=== PATIENT | female | born 1975 | race Caucasian/White ===

== ENCOUNTER 2022-07-31 15:54 | Outpatient (OUT) | payer MEDICARE, MEDICAID, SELFPAY ==
[2022-07-31 16:20] LABS: Basophils Absolute Auto 0.1 10^3/uL (0.0-0.1); Eosinophils Absolute Auto 0.1 10^3/uL (0.0-0.7); Hematocrit 42.2 % (36.0-48.0); Hemoglobin 14.4 g/dL (12.0-16.0); Immature Granulocytes Abs Auto 0.01 10^3/uL (0.00-0.03); Immature Granulocytes Pct Auto 0.2 % (0.0-0.5); Lymphocytes Absolute Auto 1.2 10^3/uL (1.2-3.8); Lymphocytes Percent Auto 19.6 % (20.5-60.0); Mean Corpuscular HGB Conc 34.1 g/dL (29.9-35.2); Mean Corpuscular Hemoglobin 32.8 pg (26.7-34.0); Mean Corpuscular Volume 96.1 fL (81.0-99.0); Mean Platelet Volume 9.3 fL (9.5-13.5); Monocytes Absolute Auto 0.5 10^3/uL (0.3-0.8); Monocytes Percent Auto 7.4 % (1.7-12.0); Neutrophils Absolute Auto 4.3 10^3/uL (1.4-6.5); Neutrophils Percent Auto 70.8 % (43.0-75.0); Platelet Count 268 10^3/uL (150-450); Red Blood Count 4.39 10^6/uL (4.20-5.40); Red Cell Distribution Width 14.6 % (11.0-15.0); White Blood Count 6.1 10^3/uL (4.0-11.0)
[2022-07-31 16:47] LABS: Alanine Aminotransferase 15 U/L (14-59); Albumin Level 3.5 g/dL (3.4-5.0); Alkaline Phosphatase 70 U/L (46-116); Anion Gap 11.9; Aspartate Amino Transferase 15 U/L (15-37); BUN Creatinine Ratio 6.2; Bilirubin Total 0.5 mg/dL (0.2-1.0); C Reactive Protein 0.5 mg/dL (<=1.0); Calcium 8.8 mg/dL (8.5-10.1); Carbon Dioxide 23.9 mmol/L (21.0-32.0); Chloride 101 mmol/L (98-107); Estimated GFR (African America >60 (>=60); Estimated GFR (Non-African Ame >60 (>=60); Globulin 3.5 g/dL; Glucose 97 mg/dL (74-106); Potassium 3.8 mmol/L (3.5-5.1); Sodium 133 mmol/L (136-145)
[2022-08-07 11:09] LABS: Calprotectin, Fecal 5 ug/g (0-120)
== END 2022-07-31 15:55 | disposition home or self-care (01) ==
LOC: LAB 15:54
DX: K52.89 Other specified noninfective gastroenteritis and colitis (principal)
CPT/HCPCS: 36415; 80053; 83993; 85025; 86140

== ENCOUNTER 2022-12-18 11:11 | Outpatient (OUT) | payer MEDICARE, MEDICAID, SELFPAY ==
[2022-12-18 12:05] LABS: Free T4 1.47 ng/dL (0.76-1.46)
[2022-12-18 12:10] LABS: Alanine Aminotransferase 15 U/L (14-59); Albumin Globulin Ratio 0.9; Albumin Level 3.5 g/dL (3.4-5.0); Alkaline Phosphatase 72 U/L (46-116); Aspartate Amino Transferase 13 U/L (15-37); BUN Creatinine Ratio 9.6; Bilirubin Total 0.7 mg/dL (0.2-1.0); Calcium 9.2 mg/dL (8.5-10.1); Carbon Dioxide 27.9 mmol/L (21.0-32.0); Chloride 98 mmol/L (98-107); Chol HDL Ratio 2.9; Cholesterol 168 mg/dL (<=200); Estimated GFR (African America >60 (>=60); Estimated GFR (Non-African Ame >60 (>=60); Globulin 3.7 g/dL; Glucose 94 mg/dL (74-106); HDL Cholesterol 58 mg/dL (40-60); LDL Cholesterol Calculated 89.2 mg/dL; Potassium 3.9 mmol/L (3.5-5.1); Sodium 131 mmol/L (136-145); Thyroid Stimulating Hormone 0.031 uIU/mL (0.358-3.740); Total Protein 7.2 g/dL (6.4-8.2); Triglycerides 104 mg/dL (<=150); VLDL CHOLESTEROL 20.8 mg/dL
== END 2022-12-18 11:12 | disposition home or self-care (01) ==
LOC: LAB 11:13
DX: E03.9 Hypothyroidism, unspecified (principal); I10 Essential (primary) hypertension
CPT/HCPCS: 36415; 80053; 80061; 84439; 84443

== ENCOUNTER 2023-09-27 14:17 | Outpatient (OUT) | payer MEDICARE, MEDICAID, SELFPAY ==
--- NOTE | 2023-09-27 14:19 | US_ITS ---
The [address] [address] Patient Name: GOLDEN SANTIZO MRN: [id number] date: 1975 Sex: F Assigned Patient Location: [facility] Current Patient Location: Accession/Order Number: [id number] Exam Date: 09/27/2023 14:22 Report Date: 09/29/2023 00:41 At the request of: SATURNINO CAMARA Procedure: US pelvis w/ transvaginal EXAM: US Pelvis Transvaginal CLINICAL INDICATION: Fibroid D21.9 TECHNIQUE: Real-time transvaginal pelvic ultrasound with image documentation. Transvaginal imaging was used for better evaluation of the endometrium and adnexa. COMPARISON: No relevant prior studies available. FINDINGS: UTERUS/CERVIX: 1.5 x 1.9 cm posterior myometrial fibroid. Normal endometrial stripe thickness. RIGHT OVARY: Unremarkable. No mass. Normal blood flow. LEFT OVARY: Unremarkable. No mass. Normal blood flow. FREE FLUID: No free fluid. US/US pelvis w/ transvaginal IMPRESSION: Solitary uterine fibroid Electronically authenticated by: ARGENTINA AVILA Date: 09/29/2023 00:41
== END 2023-09-27 14:18 | disposition home or self-care (01) ==
LOC: NOMS 14:17
PROVIDERS: Visit Provider Obstetrics & Gynecology
DX: D21.9 Benign neoplasm of connective and other soft tissue, unspecified (principal); N92.0 Excessive and frequent menstruation with regular cycle; D25.9 Leiomyoma of uterus, unspecified
CPT/HCPCS: 76830; 76856

== ENCOUNTER 2024-01-03 20:14 | Outpatient (REF) | payer MEDICARE, MEDICAID, SELFPAY ==
--- OUTSIDE RECORDS SUMMARY | 2024-01-03 20:18 | XMS_ITS | CCD ---
Author Organization [facility] Care Team Providers Care Field Representative Name Role Phone MERLY HOOD Unavailable Unavailable MERLENE SETHI Unavailable Unavailable MERLY HOOD Unavailable Unavailable Asaad, Imad Attending Unavailable Asaad, Imad Admitting Unavailable Valerio Gaston Primary Care Unavailable Asaad, Imad Unavailable VALERIO GASTON Primary Care Physician Unavailab le Estelita Fuentes Admitting Unavaila ble Alfredo, Estelita Ford Attending Unavaila ble Chantel Christian Admitting Unavailable Chantel Christian Attending Unavailable BoogieminiEstelita Admitting Unavaila ble Sarmini, Estelita Ford Attending Unavaila ble Angelina Siddiqui Attending Unavailable Chantel Christian Attending Unavailable Chantel Christian Attending Unavailable BoogieminEstelita ruano Attending Unavaila ble SarminiEstelita Attending Unavaila ble Sarmini, Estelita Cernaal Referring Unavaila ble Gino, Chantel A Admitting Unavailable Chantel Christian Attending Unavailable Chantel Christian Referring Unavailable SATURNINO CAMARA Attending Unavailable Angelina Siddiqui Attending Unavailable Angelina Siddiqui Attending Unavailable Valerio Gaston Attending Unavailable Valerio Gaston Admitting Unavailable Valerio Gaston Primary Care Unavailable Valerio Gaston Attending Unavailable Valerio Gaston Primary Care Unavailable Valerio Gaston Admitting Unavailable Valerio Gaston Attending Unavailable Valerio Gaston Admitting Unavailable Valerio Gaston Primary Care Unavailable Valerio Gaston Attending Unavailable Valerio Gaston Admitting Unavailable Valerio Gaston Primary Care Unavailable Valerio Gaston Attending Unavailable Valerio Gaston Primary Care Unavailable Valerio Gaston Attending Unavailable Valerio Gaston Primary Care Unavailable Allergies Allergy Classification Reported Allergen(s) Allergy Type Date of Onset Reaction(s) Facility (2 sources) No Known Medication Allergies; Translations: [No Known Medication Allergies] Propensity to adverse reactions (disorder) [facility] Repository Medications Current Medications Medication Drug Class(es) Dates Sig (Normalized) Sig (Original) amitriptyline hydrochloride 25 mg oral tablet (1 source) Tricyclic Antidepressant Start: 11-17-19 take 1 tablet by mouth three times daily amitriptyline 25 mg Tab 25 mg = 1 tab(s), Oral, TID, # 90 tab(s), Refills(s) 2, Pharmacy: [facility]/pharmacy #[id number], 153, cm, 11/17/23 12:17:00 EDT, Height/Length Dosing, 64.4, kg, 11/17/23 12:17:00 EDT, Weight Dosing Start Date: 11/17/23 Status: Ordered Fiber Tab (2 sources) Start: 08-17-19 Fiber Tabs Refills(s) 0 Start Date: 08/17/23 Status: Ordered cholestyramine resin 4000 mg powder for oral suspension (1 source) Bile Acid Sequestrant Start: 11-17-19 Questran 4 g/9 g oral powder = 1 packet(s), Oral, BID, # 60 EA, Refills(s) 1, Pharmacy: [facility]/pharmacy #[id number], 153, cm, 11/17/23 12:17:00 EDT, Height/Length Dosing, 64.4, kg, 11/17/23 12:17:00 EDT, Weight Dosing Start Date: 11/17/23 Status: Ordered hydroCHLOROthiazide (11 sources) Thiazide Diuretic Start: 03-04-19 hydrochlorothiazide Oral, Daily, Refills(s) 0 Start Date: 03/04/23 Status: Ordered Synthroid (11 sources) l-Thyroxine Start: 03-04-2023 Synthroid Oral , Daily, Refills(s) 0 Start Date: 03/04/23 Status: Ordered loperamide hydrochloride 2 mg oral capsule (10 sources) Opioid Agonist Start: 03-04-2023 take 2 capsules by mouth every six hours as needed for diarrhea Imodium 2 mg oral capsule 4 mg = 2 cap(s), Oral, q6hr, PRN Diarrhea, # 90 cap(s), Refills(s) 1, Pharmacy: [facility]/pharmacy #[id number], 153, cm, 03/04/23 12:05:00 EST, Height/Length Dosing, 61, kg, 03/04/23 12:05:00 EST, Weight Dosing Start Date: 03/04/23 Status: Ordered losartan potassium 25 mg oral tablet (10 sources) Angiotensin 2 Receptor Yara Start: 11-16-2023 losartan 25 mg Tab 30 tab(s), 0 Refill(s), Refills(s) 0 Start Date: 11/16/23 Status: Ordered Start: 03-04-2023 losartan Oral, Daily, Refills(s) 0 Start Date: 03/04/23 Status: Ordered polyethylene glycol 3350 236 000 mg / potassium chloride 2970 mg / sodium bicarbonate 6740 mg / sodium chloride 5860 mg / sodium sulfate 06215 mg powder for oral solution (1 source) Osmotic Laxative Start: 07-29-2022 Problems Problem Classification Problem Date Documented Da te Episodic/Chronic Abdominal pain (13 sources) Epigastric pain; Translations: [Abdominal pain] Onset: 8 Episodic Miscellaneous mental health disorders (4 sources) 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; Translations: [Psychological and behavioral factors associated with disorders or diseases classified elsewhere] Onset: 4 Chronic Nausea and vomiting (11 sources) Nausea; Translations: [Nausea] Onset: 4 Episodic Noninfectious gastroenteritis (2 sources) Noninfective gastroenteritis and colitis, unspecified; Translations: [Other specified noninfective gastroenteritis and colitis] Onset: 3 Episodic Other connective tissue disease (2 sources) Disorder of muscle; Translations: [Other specified disorders of muscle] Onset: 4 Episodic Other connective tissue disease (2 sources) Pelvic floor dysfunction 08-17-2023 Episodic Other gastrointestinal disorders (1 source) H/O: gastrointestinal disease; Translations: [Personal history of other diseases of the digestive system] Onset: 4 Episodic Other gastrointestinal disorders (10 sources) H/O: colitis 02-24-2023 Episodic Other gastrointestinal disorders (11 sources) Diarrhea; Translations: [Diarrhea, unspecified] Onset: 4 Episodic Other gastrointestinal disorders (2 sources) Abnormal feces; Translations: [Other fecal abnormalities] Onset: 4 Episodic Other gastrointestinal disorders (4 sources) Hard stool 07-02-2023 Episodic Other liver diseases (3 sources) Disease of liver; Translations: [Other specified diseases of liver] Onset: 4 Chronic Other liver diseases (4 sources) Liver cyst 07-02-2023 Chronic Other nutritional; endocrine; and metabolic disorders (10 sources) Loss of appetite; Translations: [Anorexia] Onset: 4 Episodic Other nutritional; endocrine; and metabolic disorders (2 sources) Abnormal weight loss; Translations: [Abnormal weight loss] Onset: 4 Episodic Other nutritional; endocrine; and metabolic disorders (8 sources) Unintentional weight loss 06-01-2023 Episodic Other screening for suspected conditions (not mental disorders or infectious disease) (5 sources) Imaging result abnormal; Translations: [Abnormal findings on diagnostic imaging of other specified body structures] Onset: 4 Chronic Residual codes; unclassified (4 sources) Family history of malignant neoplasm of digestive organ; Translations: [Family history of malignant neoplasm of digestive organs] Onset: 4 Episodic Residual codes; unclassified (8 sources) Family history of cancer of colon 06-01-2023 Episodic Results Test Name Value Interpretation Reference Range Facility Coding Summaryon 12-22-2023 Coding Summary HTMLBase 64 AtwpjvakBAg8gDv+PGhlYWQ+PE 8NHIUhM13sbWJrdC6vS6YXPGjR WvuyADWDIBxBOhYvuxKlKB8oiI NjZXJu IC8+VV9yLZBzWrkblVGjp1U6tM N0A98ogj3zKAembLV4BAWnDiAw wpgby0dluQz8HTukJbtdLoOa NBIfyY04BQJ1lD41Ru46mXWdeK Fjz9fzaIm8WeDvIOQyVSV8aDjq ECnsn9NeMIRaK13ziTNrj7V2 DZCdmQvvqCPaZrBdxKE1qT5lGJ pcburfy6fwruouJbc8mx64cRWc y2E7rAB3T0JqlqD4HEOcaTIz FztjkUVEvU5jtlayy9hxgpvjGa YzIJBqMEs3EPe2IXZmqYgyNqXr VI12AKD5WVSvlvZpN3SfBDPz rNtpCfF3p7O3Rj5XY4NUXdgwP3 VNTUFSWTwvdGQ+FU34ks30U5Bf OvtoYna2NNStENR1nWT3nT9r JJJiIYsoe6C5ySW1Z8JqxmKsmt 0hm1phWWXoZVrdO29ioQNtn7P2 CENzdIN2AZTvcWulHxPcwC36 Oyc+UOVvqCqfi8FgKpbdk0bmt7 fpjNo5DehtUTYffiWedBpdQOH5 i0OvAe5iOEVgcNN4hOE8fL3g LfVsEdZ3OReiH190DkBolEWjMf tnE58cT1BkqTU+XAPpAvq8DEVm aRqrQF9vD7UlVVOanuoshMTq uRjvNP7tNGKofwnmUJFevY5iIV QlC9j8QaTwSpS2KDnaV3FcBPEu akqsKd08yR4pEuWsUgX4HDnr E8GyacC1ZPTujMJvIJjaSIY4H8 0zw1M1TMQhAGRuZDN9xTX5hG3x bGlnbjogbGVmdDsgdmVydGlj HLgaDXnbI885JDWlaWukTrGtWQ luZyBEYXRlOiAgMTEvMTMvMjAy NDwvdGQ+OLZqIZE3gJxfVSOy lKZiNQffDw5uoTpdhOynQO6wPU BvlxomLRHaaE2fLHDmyKXpnGld GN6mQMJijddfn538XtDfLDO4 DYUakTElN0TupJ1nVfXeEURcWW ZcI5BdkREfYWxuJ735FQrtEyB2 ERXaeyFmE0LuLYUcnFiyXsS6 l3D0Yy3Oe7GysmvlN1KryCUdXf EwLrhrBZs8Y1TsFroqoQL+PC90 EJZjVV12KCo5FGC1fIwiKHlb KWFvQ2WatJ4eOnOuVNSsJFWqVm c+PHRhYmxlIHdpZHRoPScxMDAl DjJytCpqKR5fTm9oKQFhBOCz lXefdFQzBwQob1glDWOtHIfuYR 5yyQekI4WwxAU6OKOgx2y9Ez90 X98tN8NbgFI+CBAfaKH6mTX5 tO5mSrWlJnH0AMrnR939JtTliV MiZmtza2tqj3bljDx5KuV2PHYb vrTykCriKKP6t7WkAp62U33y IHdpZHRoPSIxNSUiIHZhbGlnbj 5wyZ8mGe3+YQJmvJC9sZT0rO7k PlUuPvT7NVatQ066AmNctJWb Brmzw7eif0luuHi0XxLkTWFhjp SqnTwoEFR3a9MzFq09V0OngYox p0QbZuz6rd44iVAfk6J8lXV6 D7TwDPUnthzyrZFbtPvnAK7eSD ZhkkqlGIMxjD8gTJAhI2z2SwJa EcN4YEfvE9XaabF1YCIloABj QDFurEZXuW2pgsumx1rclyxaAq NpEAVqMVu2TXm2YSSwwFfhSaIi SUX9QxO8SZG7fABesD7xpQzd uujgkX2lDec+HIW9lZMrsQBATR 1lOjwvdGQ+ZICnWGK4xFxdAKvw SYFdaS1fDCRcI1r5HjEeEaI5 UQazW8PtrsO1JTGmyHUrOUCexE QPdK5ouoyqu8ljqgijYrPnMTRr QEe2BJz6IKPdnJlcPiZxQAC4 WnY7VXJ1pMRwqT8qnYbtnyhnoS 9wOyc+JkdfkWyvONG3ZWj3D5Sd Ppa4NSTveFdtTW8jcKLnJQer Ef8yiZonuSenHZ6gRBAlfghvh9 39LgAli3btYWWjtYOsGYieBBQ2 F19gx6M4LSSbEKIjPCF6nQV3 tT0moQricwezzJBeaSbkutPwcT ioPKcwTQzqE890LWBmmQscSxWb GIz3N8EpUgj2LFJgqUgwRC8o uWYaTBhqXs8ctQrkqFwsLI3fFU Hocbkaa904YsBpo4ieVFMxdNYb RUlgRNW4Z05ba4U6WNOmZYNh UUR8sDO0jR4jrEdaoibbdPBamB gmleEmiIccPIteGBpgY627PHMl oSsgYrJvtZj0J2TdOpk5JTRb jHdbHZ8mkRGqCSpjKs7puNmwrV tgXM9sCVNyksfgi879IuImt8zm GPCoqKTeLIciASM8Z29bt5L5 DROwFXDaBGK2uYC8iQ1wbVxflt ogbGVmdDsgdmVydGljYWwtYWxp I433DMEoeCgoXlQofOzcwiDw TQkuXCm9A3AyAeytzHL+PC90YW IfZP46fWMygICtc4gxjIl7WpXy OAHlNDF6hFsgYOtac8UxOAJl E60irCSbj5I8XWQmsSprtBRaWp RvwIZ6yL1fPSsoiauty5kndfcl Soapv5onwa29bS93Y23jXZgg LPUkUCVjCXNkQSWnrWktgc9jnH 9wIi8+ZCXxcGK6vIB3qT2sUDMv QtK2PIjxB148KqMjzFHzRhmm f8wpo6frpTe9RyY8YPKhvsMfeB mjLHT8s2MwZa98Y88uWYkrDRIx BRVrIUXhQWIhtJaxzc7jpR3d Ii8+RJRwgVZ0uUL5fR0nQzTyWi B9EEzlL837LxDpvJDjMffkY32g S3RpzKJ+QCTaYen4EBEruWfp CL8uxGMwORlhJx7nIHL6XcQlEw BxBQaoB7ScCVXkillifstntZJ1 BZMoZWPrlA31Bn3gpYwdIWWg kNUAeH0ftwnns3kmrthnXrThPA RsLUq9XGj1AOXcjOzoKmZyUTM5 TmG0QTG5lQWzeF6kfVhfonss gK4fG6QlMFHtvqakUb07fD4hEs RiFmQ2RZyzKoa+Et2KPcIQXlqn TUlDSEVMTEUgTDwvdGQ+PHRk NMN5qEuxXTkdBIYgcV4lSRJtU9 s7HpAvIlQ9JMgxK6BpEHXkysjd Ez21jE1wSuTvEwC0EJqoS5Yq vnM4PSLpiSFyUSpkTOD8F39dj6 O1YMMvDCFvQRM9bDE4bL3zfLdt bjogbGVmdDsgdmVydGljYWwt XUmyK212EYCevWjyDxHrMdU8Sc U8Vnr5U4HhOzw0PWKjvNueLN1r wHGgCAiaPr9kdOarwMqlSJ8b YSFsvorbICGxqZ1rOEClyPKnxJ hsVZ3iSMMpbxkrb468NpUxSZF3 ZDVtsIGdY6SbqL1nTtXnQJWm GJPfF9FilXIgGOqgX164DXrbSf P5VSYocvPjP6NgYLFpvRjxRsZ6 y5H9Az60SaHKSJHahkuefZP+ BSLiXEP7pMdaHNjoTTUffS1mYR XhY8e4RrJwKdS0IZdjZ1XyEOKl hdprPi94uD5rVaQdObM2FRna B3IqevS5TOUqcSPbPIpfOEX9L2 3ut4N7ZNFrMCUqCQN9fYZ1zG9g bGlnbjogbGVmdDsgdmVydGlj IPjeXZygZ827PKLvxBuqSpMXWH FMRTwvdGQ+GMXiBQP2nHuoJMkq IOEszB6gSNHhA1k8AhVgPsM6 LJjeG2FdFLIvtdelPb83eR5gQi RvLrC9BZfcE8VaopQ1AMWoqDRg LImjHSO3Y21ip2Y8MBEcPBYi VXI8xWM5nN9dwEhwmjldkWIhgF oxqxDmmOadITltCXnnV100QFBw tFqeFy7PBD68BG30H8WzHgdu dGFibGU+PHRhYmxlIHdpZHRoPS bjVAQoWzZbqSjqEB4yLl5kTLEq DFIhqFpkwMCgHqIha6wfLICh GYavKR4wjYucC4EysHP7HFWvq2 m4Yc30I59fH3FhzTO+PGNvbCB3 vAL2vA0fKrGsGkA5VTpsN823 KbZcmUMtWsbqu7hdl7jfkGx4Jg EvHZShzeJlmOrlMTJ7b0VdSu12 J88cPIfxVJCzEBVqAJSqDQZd xNrwow0ufE0iRg4+WRMqvVF9qY Z2qM8jUbKmZfG7OSocY906YhGk vLIxExtpW70wS4CslBW+PHRy Snn2JRBuhYygCP9ahJQlFWzzPq 7tLTP6MrEsTbApASsfE8UpMFEh jnweqecmsAC9RIPhWMUjoV78 Te4mfMcoEx6hQTApZBB0YYPhuN PrH4PzhX4mFaVjEUSqMMWgP9Qk vECxZYjwN383WRteRkL5XFUy cxKgY1XzMRVeaMftDkG3f0F3Lo 5AaMwhaRDfAS3xKmRlPYn5E3Ji Fwe2WCKfaYirZE5otLMiIZmc Mu3lbKgisRscCW8qMPWcakhyq6 99ToNka6gfBKJnkVJkRIujTEH8 Y85br5F9PUXqBMFhUBL9hEN6 mU9xjEnjjxywoOGxsKijihWubG aeZDzxLQjpZ828NATwbAmrGqRE Kdx5M1QqVpk0MOXbwKujGQ3o nBThXWqkFx1dbNgdcOnnRD2eRJ Xgmdsvy810EoNyk9itCKXmdEOy ZNpzHQC3I16gk3V1DXCeUOOy VKE2lPF0kG2lrOqgfdixxTSfdQ ceuvNdyUthTIyyHZgmR751NRLs qAixXl8FOal3K1JzSth3IRVw gJqfMU4wdVZrEDroJz2rlZyyjV giYV3lOIQviquif427CdRws1pd ULQoyTHuPArgZEG5E40wz5N9 MVLfAHZuAZJ4xUQ2dW1poUtisx ogbGVmdDsgdmVydGljYWwtYWxp M202ZHRqbTuzKaYmdCNvNrvh dGQ+VU17pg89E2HcPfddEli0VZ CuBVE5eHO1bO4kEQUlDUmng9W7 tRK9W5NitpNgjw3ou5aiOYGt ZTo (more content not included)... [facility] Coding Summary HTMLBase 64 VajxpwqjNDj7gTw+PGhlYWQ+PE 5WRRAoD85hgZYjwH2bC9BQONzG NbauIVGKOUzZSmSbzmIoAX3emJ NjZXJu IC8+QT3tUOCgDfkzoHZck3T3dN Y2X79jae1xLVuosEH8SOQdQlPu namah2macYe6ORtiEffmKzVo ZLRqqG71TTT0cI37As93iCNqfC Byc6kzeFf6AvZjIIKiCKL2cRfp BMixm1FqGDCuA70emCObr5E8 NACeuRkdaFVpQaOriTV0vR2wPP ohddatn5lxtlmbFme3if94eQXr y0Q1fRF9L5VrogI1YTUzhCHy CtlbtHQBgF6tpsahm8ljewczJc RbALDvXRj8MQj2TMIvmBeqPjBs UR52UVB2JMKxseBgO9WyDOEk tFjeZeE7y0G5Xu5CY4CLKiywZ7 VNTUFSWTwvdGQ+QK75rw13Q3El JwkoWdz4ZHTmJZI2tVX4pX1i IRXsCEybr8B7iCG2T8EathJxbg 5ai9usGXCzDRkfH30nlKYkd7F5 KFHslMI7FDFjtXsyEdQovD09 Oyc+ZRMqbZpbz7BbWwfzp5cnw2 ptwGi6FnsdAGTazaKfuQvxXHS1 w4BtPp9rJCEosEL7bAK5sO8i JqGrZyC1CKcrG351DlMuwHSfTx ozC75dJ5ZaeJV+CFTnFhy0ZTZp dAeuMA2cY8ThGDOmpzsxyIBj vZqhZG7lVTMdfztuXHOhpC8dKQ OkK4q0RxKjBfD8NQxjO6VyLXGh kxmrPe31zN5nMuGmWdV3DQgl O5YplmX6EBKnaRRcEVjyYCL6J9 8jh8S5OYHcJDGtPFG0bRH0nZ3r bGlnbjogbGVmdDsgdmVydGlj OIwyUIfbI581XIMfmMqwQjHwYH luZyBEYXRlOiAgMTEvMTMvMjAy NDwvdGQ+KQZfMNT2sKosGIOi aSVmRAigXj9mjApoqAxjXT9sAB ZbysubMZAeoW7hPPQdaSYpgUtv EB5kIWFhjutyf435VqRjAGF8 KJBwxVMbO6JtnT2uNjAkJYWiID ToX8XqsWVyJXmdX169BHczTdS3 GXIzzcXpL4UcMJJpbYnsSzM6 i9O8He5Sb5JvgoeuC2OuzQYsDr XwBgniMUm3B2EeMykrrHP+PC90 RONbML36BVa4UQJ0xOlkWOep ULFjA7XznU0hFtXhNXDbKGPdNg c+PHRhYmxlIHdpZHRoPScxMDAl RrCbkQyePN0rXf6iAYGdBGXw wUwdkPKdRvIsk1xsDUEvVPutEK 8guWdfO2MbzKQ5JQDyj1m4If45 B65wW6LzrQT+DRTglNE1aJL3 rQ2kSfPtVmF0HPflR687VpPumO WmZpiec5afp7vgmVh3LsW6DRIi pzYniJwjBDR7v3JoFn97F10e IHdpZHRoPSIxNSUiIHZhbGlnbj 2jlG3eCh8+PUApmFY6bNG9yX6k PrMsUjQ9YNwxF314UsNzuEYj Ievvl4yae1ngpLe8PpQzYUTxsq LlgDwfXIK6i4NqWt55S3RuoYgm z8QpTmd0wz77mMTkz0R1jRX1 H4SfQVVzqtcweACbcQejGN3zQG AldpevGKRkmU9mBZVkE5w4TaBz DrV3CKqrE4UwrhC6MZLwlJAe QQTisSSSfD6bsyhhg1gmletlYe CoUJNhLPh8EHn3LGJhrJavBdYj YTA8IbB0PMP8pTRcnT8qyNgw mkvxcG9jLqg+PCQ8qPLlrRRHLP 1lOjwvdGQ+YGDmTDS1oNrtZXrn UJBrxY3rAHNoY5a6SzWlSbQ6 IZlmW3XgzuX6CEAfoVSqRLFawT IPbK3codwdx5ximlvmKhWrLTUv APp1APi1AUJidHlvIwEqKEC9 WtQ4DTI7aMVozQ6xfJatusxuuZ 9wOyc+PzlxtRifEHK9QNf7K6Pn Xca3YBIatVwbWB8dwWDtUIda Et0gkEnefBrdIN7hRPIxnvoxz1 55MhCwo7vqQCVwnEHpCTwiHNJ4 D54bh7Y3FRSbPJTmCGY0lNN9 gW5qzOwmduombQJqiRbdanLzeT riVCztPYxlJ766AGAyoGdkRgTr TMs6O4RfIhi1ZPYecUcbWI6k uUGpYThpWf5unRzpnDmiMP7xTW Mwdjymy755ToBga6zdMYCasULe TGxxGSR0U44oe7S2TDJmVWBw YOV9wUW0bZ6bpDdralyzwRSvnS dzhvLdsHheTTuqBMsaG868PMZy bKexIsSowYm3H1RiLgo8PBRl kMbtAY3veOEjLIfiNs2fiHrehR ipTX3vMTYwytyzt932MfDop6bi WRXyjRQuAPycBAB9H94il5T8 TJTtERTdMOQ3wWZ9fI1ciBxkea ogbGVmdDsgdmVydGljYWwtYWxp Y224YXJgaXxyQaIqxFionaOz FPmsTYd8U3VbTutnhDR+PC90YW QhNV48nMSjnWEoj1omnRw6DuRj CAHpFFF2xHxaADnla4SjCKYk W43uxMLiw8X1XLTqwLbjrCTdXv FbuIR3cT0gESzfrwieq0vukzgp Xqvgv2ugfs02eI40Z07pRJln QJIsWUDzTBMzMCWdvRicjc2xdL 9wIi8+ANTlgWH2hII9nG0mCNYc YqZ2ZCuyC669SyUnrEAfYdam i7skj8iebOw7EkB2SRCagbWcbD ysSXX7q8IwVf32S89sGCfqSRMu LQLvJGPeHTCwyRacel9dmZ1d Ii8+NFJpbLU8eKK4rT8bQzKaLp E2EPbpE969NjKxuYXoEiwdF27n O0LvuXU+GQTyKnl2CPNnuRhw DT7bzRXwISfnBc7cCOZ0EsAbQc QsOIvlY1QmIPDfjubmqvtlcLJ6 AOOaASQfgD06Jz8tqAuaSKHs nFSXzG7hxcxzk3mokpkyJgGhTB KpMQg3CRs9PWJbdBiwYoPfMBD7 RtK8MFK3bUVmrI3mrYdqrbcq sT6dK7EtCJLlyqatUp24rH9rIi QiRpR7YNkqAvf+Hp4SPhTKDfgj TUlDSEVMTEUgTDwvdGQ+PHRk GQQ3cEbqZCajJRRirL5nIYIjW3 z2UdDsHsJ5GUjdQ9FqXYOzcexg Ic67bP5vGbYlWqJ7GRayE1Iy mrQ1PJVavDIkHGxjJTA5J62gq8 O9GVNiSBDyRYD5yAP8eJ5zvMfw bjogbGVmdDsgdmVydGljYWwt HLmoU733BOJkyYavQnDsPoD7Hs S3Xpk2O0UeEzx1KILmxXpkFZ9o rTRdIJprEo2bsKzjbUgcRT8t KDCvbdaqGNDucT3ePTHzjNMxgX nsVU0rLHQpvctda292TbRtPVQ0 GJLzrGTnV2YixD5eXwQlOMVq RPIfE0AelUXfUFdwK286APphZl Y3PKFptsXmX2OaJHLxzGljKjX4 w4W2Yj74WjOVNGBuaalphVU+ ITWgXKB1oCyeZEygEEAiaA0yAE ZwL7k5OuZqZaW2BPloW0QkIBDb jtuuVj29oI8mLeOiAkA8FExv O1VqpeJ6ULLrfMLjERvgNDH9S8 0ae7H5BRKcDSAyHLX4cAH7eK8z bGlnbjogbGVmdDsgdmVydGlj RQbdTHzuU154BXIabUrbXvDBDP FMRTwvdGQ+EGZsKID6dUasUHlx WZGtcF4aEHUyP2k4LzTsTbE0 DQqvB7LrNGThiutxIn26uB6yFy OzZuL3HEgbS4LbzzP0ZLBzeFLa DPtsMWF4M56kd2P4VCZtJBSz IQB7jCN3hR4pfUnocuihaBUnbJ kznyJdkXjcTAkkXBbnC552NMHo mKpnKw3BKU88XN88W9IbKwrh dGFibGU+PHRhYmxlIHdpZHRoPS anJPZsLbWbjJrpOD8aLo7sTPVc INPfuGwgjRQxRfYjw1sxHSEz OQrvAZ3jiZtaB2VbkBD7JOXof1 x8Ub44H42kP4ZglCG+PGNvbCB3 pBZ4rQ8hHwTiJeW0NOlcO091 GoEvhYBrWvlqu0uqw8okgCf4Ih PlFAKgebTvzFiqTEC3o5XtAx24 O64kEZxdRFCdCBGiZWVnSSFs qFrwca5qhN2wWx4+QHSzhCZ1lU F9pO8fZeIwKoG6SBqsX986BiNk xDKuOiluU37wB9XobXV+PHRy Sje2AKPjrVjvNZ7kjUXjQHxsCf 7kCWG6UqXjAeLtXZjrO8ZiZBKx kednotucaAV5YNXiCEBpoQ35 Ic7usNmvIk4sHVFyNGR5WIWqmY InY5NzhB1mAgLeRBGhTZCgC8Yu qHDnFPhtK897WCnuXlG9OPJv hyUoM9WsVLKzgFdsZeJ6o1L5Bk 4DsFbmeUOlNR9uLzJiKUf3A4Bn Cuk2BVGhtGolWC1qoCGnNKfs Nq8nvJujuCmqJF1gMAAkgbjgr3 39LxJbf0inHSWthMVzINauSGZ6 W22ar4P0GPFlREOxOFV0qFE0 bI9zjOmstrvgzZPruLnikiSqsW qhXNaoKSqpJ852VTIbmLtbErXH Nzs7L9QxBed1UGWqvWzcMT1q sPKfDJjtZy1hyXsjsHfuNO9nMV Ajolvle937LbKsg2giSPVpnYTm UMiaRXW1S09ft0O1LLQoHTQc KRH9vUG0kB9ioPvxekwroZEetI wxrwTajFnfJCssTMvfR983WVAc mNwqUm8MUhe2A6NhLyh8RUMg yUvqZP9ahBUtYKezLs3geHataL izCO2zBEAemhvgc828PxBiq8jl OOSlaMAqWUssQBH4S08qy8E8 BCYvAZLuHWA7xQZ1xY3xtSxffp ogbGVmdDsgdmVydGljYWwtYWxp S188PIQdvHzjXiDosCIiSroq dGQ+KI13gl49U6JiNckpZfa4TD OyQHK9aBV2tH7aCKXcHUhwh5X2 fQK0N7LgcoSfcz8pt1jgMKZd ZTo (more content not included)... [facility] Coding Summaryon 12-15-2023 Coding Summary HTMLBase 64 XfawspwdJJc5tWg+PGhlYWQ+PE 5YQDFsC96ygDBccH3gF8RSEUtU QyvdEQVQVNzVZqHtzmHnJK2qhO NjZXJu IC8+XA9vXEDhOtsvhTBwc7P2gL H9V29lnr4yOLurnNT6OKYrDoFp livkb7ifsMo3NVazKjhdAeAe KKXtdE92RDE5xK75Iy35eMJmzN Rfo3uynVd4QbDcTBQeALW2hLyi MMuvv2GoHOZhJ85wpPLtv3G4 LEGhnIveeRWaGcMijHH1zS1iHG wgkdwzu3zwqfjiZqj6st39iJAb g2B3gSZ4P9PqswH5ILXofUOc FpelfUWFhU8ijpaxv8bjozirRj BzVGYaSJb3AAu9JQIfeQxfYfCk MD97LGJ3UKQsrjYgR8RxKJJl gWsdDaW5s4K5Mm4LU1VDFhkzM5 VNTUFSWTwvdGQ+ZE23vu09T6Rd QvdjTdi9HTScPQT0nJT6rU7i CIEuINofp1T3vLO7P4ArtxJvmt 3lx1lpDAYiYHbeS41rhWEnq9D5 JJGnxEC3BTWfyQdwVsSghK40 Oyc+TDLfvFmbf8JsCsdjj8yev6 qadDj0UgutKRPjcdHimDpiEYN8 d4HsAl6gAVQxmPT5bIZ6gQ5r VeEpLlZ0PWbgU033TtVbuAJqIb lwY76yV7UoxQE+KGPyWgv9GFWc eWreTI9fV4ZwKFHktdetiWWi oPwpXP2eFFHjenjkTZZezT2lXX FmT4y6DhDvFfZ4TNqdC1DyIXAb lnkdZx87tS2fUrBuYgQ9QTci G7WlkqG8QSYucTEdKZuwCWB3J6 0lw0A1VAKcETYuBVL5yRV2cO7d bGlnbjogbGVmdDsgdmVydGlj ZVkuYMaxE308FVDzkYvdCnVyBZ luZyBEYXRlOiAgMTEvMDYvMjAy NDwvdGQ+DWQrQIP2oFplVCKx bOCmLHzmCg1eaXryiIdsBF1oCW RphhqoQEZgdZ3oYEYnaMLegTeo JG2dQGZnzudgz622VfHmPTU8 VAKyrDXvZ1PxyK1aUnVbSRQoQM XdO9TliDSrKQjjH259LTpvKdT2 KWSsqxOhO4RbOTMdkUjdJjM0 m6A4Th9Ue8AxjyuuC9DwdDFeDm HyStbrNJr1U0LxAmamcZB+PC90 YTAuPA78EDp6GQX0iSnvMOmd HAEcD5YkrG2eGjWnEEFeXTFeCs c+PHRhYmxlIHdpZHRoPScxMDAl GqKssEbiKH0rMa2oFGVdGSDr cWnobWXvLfRjg8zjDFNtIMtlPV 0zbYnyP2SovPG3YBRbz2e1Wk24 Q48dM2WkdBR+PQAzuNG3jIE6 vM2tBbQgZlE7NNuoY921PcYzvF BpXjkyw7fih7sjuZe0LlW7VSNa rhUzzAayWTK8v4IoAq65W90n IHdpZHRoPSIxNSUiIHZhbGlnbj 2twY6fVv4+VDIjsZP6mTA7eB6r OhSaArZ2XCjfC550BjOulZZl Ejyix7aec2cxxMz1NhVjOFFsut AsvNqlZZW6f3NvQf66G7EhwPop x6TcQbr5qn83gHEyh9P9dCM3 R1DjNXYckvyurUSwwUeyJK5yZS BeolnaXXYnhH4mMHNyR7j6FwEm NxJ0EUavN7SnfwN4OSCzdJXz NLPxzSUNuE8tzdsvn3vzoarwZi BgNOHoKKj2VXm7KLKmaBobPjVh PGN5NaZ7RBL9eRPyoO8ozAed sxqvoK0qEbj+AFF8qRYjtPVRDR 1lOjwvdGQ+BDQtPBU7pBzkRZqi BUMlzV5zBNUkR3h0FtNaOyO2 KIhwO1RkvzO6FOHtcDPgWRMclJ GVlH2sphudz5nmxklyUfKyYRFw FJv2IAj7ONVyqJizFnWyGCP7 YzV8TFL9zHKgbU2jyZuhvutbwD 9wOyc+FgbiqMzoMON5UMu0W1Ho Ola3LUJkrMnnVQ0jrGPzYEct Rj3psNlwmRypID8oZDZhqyafl9 94TnSgr6naAFCceMElHSplOVI8 O45sd5Z8MADnMAKzJUA3vMI8 xH6koMilptmadNOgfJyowxQywD ofNGsyUZwqG276XYVbxAuiRaUe QJy5Z8UpDrz5WWLfvXiyCL4n qCKxANbsSj8qoRrktNkhBP7zQS Xvqwhdm029CtLkl1qyUTVfsUMy ABigSRV9A75hm5K9KQAgNDRu ZST9jHQ7iC7wcDvikgbedSFkqH koyaPhiPtaNLncCFjtV179BHCo zSplBaFuvCn7J5ChRgx4TUJa hJzoDT6doRVkJLgtSv7uhVnmhO czOM8eQGNcekrps317UhAoj2fj JSYfdGLgXKgsYZD3K96yx5B2 HVNqXTMfLOV7cFR3tJ6nqMqknn ogbGVmdDsgdmVydGljYWwtYWxp I778VHPxzVahXvCyjAnnceKr IDwyCZj2C6MySlratZG+PC90YW AoDE71aPRokXRgl1exxKl5JuUy JBZlHVO6fZwlMQnbq1VrTYSb O63nySHbq5N7ONNdwXsvbLNyOw UndGS3vV8pCXncgabpy1clpgwi Myrwv3syth48cW81A65tFUpf IFLuTHYmTBPuUMVzmZtcvx9rqW 9wIi8+QROqqAD4bNV1qV5lDOVv BbG7FAeaF924DbEwsFQyXayr f0vpt3ujrBs3LlV7UFQhnqGvgP oaVVS5h5NuAl62J64tNGqoVBUr NQTyOZOgDGLlkJvshu0vqQ6a Ii8+JOZbmUQ6aAJ7lZ5sKiLrNk B6LNegU554CsHxjPUeYkpzY47n R4DyiKU+XYWvLts2VEXzrVkq VH1soDImUUerQx7eUYV7YjImYt PnWUzbT3JsCGEwojjdabitsHU6 AEFeHCTetN12Xq6ssJolGQDe dCMEcY0sggwvl2wxyjzxZqPnRL ZiHKf0ITg8DAAmmDoyYmFeRIR8 PvA1STN1eXYosY6brRhnbrjy aW5lT4UhRPLkpnwgYb90zY4pSt ClMmB9RSfhGnb+Eb9ARsKZPjmp TUlDSEVMTEUgTDwvdGQ+PHRk XRK2aVduFXlhYSGrhE3rRPXeC8 g3JsGgRgD4ZFzgU2DaRXShdmds Lt66jB1fYxZzEgF6DOemC2Jl yiV1PISqvGFvZRkeGFW4Y02uf4 I9DCKfYACoNFL7cHF5lH7xnWjj bjogbGVmdDsgdmVydGljYWwt QHijT405BPZshRckByXvJmU4Km V6Nfc8X5XcWwl1GVAknFfjAS5v wBXzYBhmYs4ptPmsmBlsZW7t FUMhqzhwECXyuT9rHIUgpDPcrD yyEH9pQICfsoisk226NhJbFIR2 TJBqoSHtK1YwgV1eDgDyMWEf JOGvH9IimVZiSEcbM154RCnhFm A7EHSmnyFwS6FoGAVwcXhjTxS8 k3C5Hb84GeBNJNRxaqsqiLU+ MFHqHUO5zQmiSMdiAAZnwQ7hTV QkF5v8WtAqToP8NUbjR7VvVHIv epyrUv46oA0xGrSoZsM4BZtd D5XpdjH2KPKerMKoQBsoHQT8T7 2ks5V9FFVlIFJuEKC1wNN5bE0r bGlnbjogbGVmdDsgdmVydGlj NSztDIomF796XXMacMhmWnCUBP FMRTwvdGQ+OJTmXZX5sRfwWBjm YNYejC5yNOUeM4z9BpZuQdJ1 KXajQ9PnXHKfnmfaNa56zD0wEj SiKoR8YJumF2XtedA2WWBpuLMd FMikJFD9Q94gg7R8OPWwAKKn XUA2jFS0vZ7bvWgecczslYRmdM kameSbrDrpRFpzIOqfX655TJNw gYqgVp1VDO72VB49W0NdOmdp dGFibGU+PHRhYmxlIHdpZHRoPS ahZOLwZzJjrZkmCL1aLm3fVULx PATmbVykeFOpFvHsj5qrPHZk PXcvHO6bnFapX6JcnNZ5NRAvv9 c1Rb47F59dI7CxgAY+PGNvbCB3 gGB6nS7bHwPoXzV0EFtkK003 JxKtzCJaDwsmr6gzt2fyqDp9Mc IcXQSmrxFtiSmjRFS5i9UfZw39 V60xFSxlNIQuYCLvSASyNGKe lWzuyy6noU7vMs0+VAQesCE3wW E5hJ1sNzOmBjO9YSstP474AvBp dZArPezvG93oR3IofVB+PHRy Nmq3OQDigDvgRT9qvQXlJVemVm 4mOQM0PzGrYmJjQIinW0HvBEBq freiuuzjvFG7IANyODLrvS05 Fd7kzJlvKm8oIFGfQQV7RPQhjC BtP5TijA4xUrJwVKMcITZnZ2Oe fVMlZGzkY667GOplMwV6BYOj jxNiK7HqZLOeqNlfUfP8n9N4Cu 9ZpSewyZEnQZ0nBtAoEPs2D6Yn Eeg1BADtbPlkXN2puGNxPCnm Ut9niDvqsVvcFH5xAAFtrjdnv7 81SwCpv5cgEQMusFVoCWvyBEM2 Q49zq5K1LKJsBJXoUSZ5hZN9 lJ7pxQafhlzfwFUvnGghrfSzbV cfVPdiBJqbS487ECAocUirQuUA Hth5R3PfEnw0AHSmaXgxAZ2s qKHuEZhqSf8yqTkaqHtvKK9nHJ Gidcudc426ZaGep8caZACcwUAa XNkhKJY5E56et9N9MYJyRZHx RII3hLO6tD9fsNkswbxxkLCpgY fkmcWaiEnpFDolXVvhK194YBBt zMocKm1MHvt1A9CiQth9ASNo gJwlXY2fbRWoPZvnDc0agJstcU adXW6uJEGpctkid801ZzMyl8cv HUJryPHjJDbwUFG7W12ow9D5 FHOsPUAiWCQ9vFD4aG9igIhnpl ogbGVmdDsgdmVydGljYWwtYWxp Z840LWHxlZtrWzJblWGpYoef dGQ+TY68jo21O1QfZazbJee4VO JnMYE3vBQ3xZ7uSDNcINbaj7T2 sSJ0G4UtdpZowl8jz1hzJQFp ZTo (more content not included)... Normal [facility] .Auto Diff 1on 12-10-2023 Auto [place] % 8 % Normal 12 [facility] Comment on above: Performed By: #### 1 [id number], [id number], [id number], [id number] ####[facility] (DEFAULT)[address] [place] [address] Baso Abs# 0.1 x10 Normal 0.0-0.2 [facility] Comment on above: Performed By: #### 1 [id number], [id number], [id number], [id number], [id number] ####[facility] (DEFAULT)[address] [place] [address] Basophils/100 WBC (Bld) 1.5 % Normal 0.2-2.0 [facility] Comment on above: Performed By: #### 1 [id number], [id number], [id number], [id number], [id number], [id number] ####[facility] (DEFAULT)[address] [place] [address] Eos Abs# 0.1 x10 Normal 0.0-0.4 [facility] Comment on above: Performed By: #### 1 [id number], [id number], [id number], [id number], [id number], [id number], [id number] ####[facility] (DEFAULT)[address] [place] [address]88 Eosinophils/100 WBC (Bld) 1.8 % Normal 0.9-4.0 [facility] Comment on above: Performed By: #### 1 [id number], [id number], [id number], [id number], [id number], [id number], [id number] ####[facility] (DEFAULT)[address] [place] [address] Lymph Abs# 1.0 x10 Low 1.3-2.9 [facility] Comment on above: Performed By: #### 1 [id number], [id number], [id number], [id number], 7903039, [id number], [id number] ####[facility] (DEFAULT)[address] [place] [address] Lymphocytes/100 WBC (Bld) 19 % Normal 14-48 [facility] Comment on above: Performed By: #### 1 [id number], [id number], [id number], [id number], [id number], [id number] ####[facility] (DEFAULT)[address] [place] [address] [place] Abs# 0.4 x10 Normal 0.0-0.8 [facility] Comment on above: Performed By: #### 1 [id number], [id number], 6231298, 3926989, 0517855, 1623414, [id number] ####[facility] (DEFAULT)[address] [place] [address] Neut Abs# 3.7 x10 Normal 1.5-9.2 [facility] Comment on above: Performed By: #### 1 [id number], [id number], 8155273, 1563605, 6457505, 3532181, 01602225 ####[facility] (DEFAULT)[address] [place] [address] Neutrophils/100 WBC (Bld) 70 % Normal 44-88 [facility] Comment on above: Performed By: #### 1 [id number], [id number], 0249913, 9793965, 0560938, 3870299, 04176441 ####[facility] (DEFAULT)[address] [place] [address] CBC w/ Auto Diffon 4 Erythrocyte distribution width (RBC) [Ratio] 14.1 % Normal 11.5-15.0 [facility] Comment on above: Performed By: #### 1 7564235, [id number], 1180928, 8270169, 1464047, 9257974, 47859333 ####[facility] (DEFAULT)[address] [place] [address] Hematocrit (Bld) [Volume fraction] 43.3 % High 33.7-40.4 [facility] Comment on above: Performed By: #### 1 [id number], [id number], 8829031, 1220090, 9011434, 6116611, 12017753 ####[facility] (DEFAULT)[address] [place] [address] Hemoglobin (Bld) [Mass/Vol] 14.7 g/dL Normal 11.3-15.9 [facility] Comment on above: Performed By: #### 1 0968014, [id number], 7141056, 7304992, 0731077, 8606348, 24340139 ####[facility] (DEFAULT)[address] [place] [address] Man Diff? Auto Invalid Interpretation Code [facility] Comment on above: Performed By: #### 1 [id number], [id number], 7767027, 0601503, 3423030, 6562966, 75961313 ####[facility] (DEFAULT)[address] [place] [address] MCH (RBC) [Entitic mass] 33 pg Normal 24-34 [facility] Comment on above: Performed By: #### 1 8737340, 2416157977, 5969513, 5851370, 3371131, 4990960, 90393392 ####[facility] (DEFAULT)[address] [place] [address] MCHC (RBC) [Mass/Vol] 34 g/dL Normal 26-37 [facility] Comment on above: Performed By: #### 1 6322134, [id number], 3529930, 6690736, 6245899, 0384292, 73754814 ####[facility] (DEFAULT)[address] [place] [address] MCV (RBC) [Entitic vol] 97 fL Normal 81-100 [facility] Comment on above: Performed By: #### 1 [id number], [id number], 8860909, 7609257, 2671061, 0983702, 74826742 ####[facility] (DEFAULT)[address] [place] [address] Platelet 303 x10 Normal 138-427 [facility] Comment on above: Performed By: #### 1 7370641, 0851129360, 7355693, 2434604, 1392917, 1843639, 87266011 ####[facility] (DEFAULT)[address] [place] [address] Platelet mean volume (Bld) [Entitic vol] 7.7 fL Normal 6.3-10.2 [facility] Comment on above: Performed By: #### 1 7362904, [id number], 2585574, 5133634, 9663451, 7163953, 10733091 ####[facility] (DEFAULT)[address] [place] [address] RBC 4.48 x10 Normal 3.70-5.30 [facility] Comment on above: Performed By: #### 1 8036607, 1575301237, 7176735, 7469024, 4453399, 2218043, 40468673 ####[facility] (DEFAULT)[address] [place] [address] WBC 5.3 x10 Normal 3.5-10.5 [facility] Comment on above: Performed By: #### 1 1783756, 3908264336, 7575872, 8562543, 6581347, 9733631, 97845398 ####[facility] (DEFAULT)[address] [place] [address] CMP Standardon 12-10-2023 eGFR Non AA >60 Invalid Interpretation Code [facility] Comment on above: Performed By: #### 1 7504801, [id number], 0703887, 2719806, 6602404, 7191646, 61316335 ####[facility] (DEFAULT)[address] [place] [address] eGFR AA >60 Invalid Interpretation Code [facility] Comment on above: Performed By: #### 1 8124268, [id number], 0656923, 8483182, 6920028, 0993795, 27840230 ####[facility] (DEFAULT)[address] [place] [address]3092 Albumin [Mass/Vol] 4.4 g/dL Normal 3.5-5.0 [facility] Comment on above: Performed By: #### 1 8748118, 0757679862, 4574488, 2137216, 3421723, 7021573, 46138572 ####[facility] (DEFAULT)[address] [place] [address] Alk Phos 59 IU/L Normal 32-91 [facility] Comment on above: Performed By: #### 1 9004129, 3534331112, 6652011, 7962138, 3806568, 0667649, 16371373 ####[facility] (DEFAULT)[address] [place] [address] ALT [Catalytic activity/Vol] 10.0 U/L Low 14.0-54.0 [facility] Comment on above: Performed By: #### 1 5119996, 5011818765, 9768671, 9022492, 2616108, 4420713, 97482805 ####[facility] (DEFAULT)[address] [place] [address] AST [Catalytic activity/Vol] 18 U/L Normal 15-41 [facility] Comment on above: Performed By: #### 1 9191284, 9352464287, 8925241, 7698338, 3417056, 9779755, 97285911 ####[facility] (DEFAULT)[address] [place] [address] Bili Total 0.7 mg/dL Normal 0.3-1.2 [facility] Comment on above: Performed By: #### 1 3269797, 5189332240, 4223431, 1416119, 2048029, 3849747, 97594538 ####[facility] (DEFAULT)[address] [place] [address] Calcium [Mass/Vol] 9.0 mg/dL Normal 8.9-10.3 [facility] Comment on above: Performed By: #### 1 9797176, 8626170333, 7656582, 9070347, 9421612, 5374926, 92886404 ####[facility] (DEFAULT)[address] [place] [address] 34313 Chloride [Moles/Vol] 96 mmol/L Low 101-111 [facility] Comment on above: Performed By: #### 1 8130541, 4384430990, 7108549, 9098687, 3279405, 8859937, 61897046 ####[facility] (DEFAULT)[address] [place] [address] 58452 CO2 [Moles/Vol] 26 mmol/L Normal 21-32 [facility] Comment on above: Performed By: #### 1 1469241, 8620622498, 7168472, 0385991, 1545313, 2309416, 38722568 ####[facility] (DEFAULT)[address] [place] [address]389 Creatinine [Mass/Vol] 0.76 mg/dL Normal 0.60-1.30 [facility] Comment on above: Performed By: #### 1 7849286, 6045399602, 4821167, 6121692, 2313815, 7752299, 40376973 ####[facility] (DEFAULT)[address] [place] [address] 96362 Glucose [Mass/Vol] 101.0 mg/dL Normal 74.0-118.0 [facility] Comment on above: Performed By: #### 1 2794843, 6385194287, 4523044, 0495565, 8842177, 8449525, 39261285 ####[facility] (DEFAULT)[address] [place] [address] 35372 Potassium [Moles/Vol] 3.3 mmol/L Low 3.6-5.1 [facility] Comment on above: Performed By: #### 1 5149470, 9693839623, 3120284, 9953668, 3041492, 7729784, 47523945 ####[facility] (DEFAULT)[address] [place] [address] 23190 Protein [Mass/Vol] 7.4 g/dL Normal 6.5-8.1 [facility] Comment on above: Performed By: #### 1 4142089, 8177472537, 8864727, 6988115, 1377399, 3084103, 08384761 ####[facility] (DEFAULT)[address] [place] [address]2215 Sodium [Moles/Vol] 130.0 mmol/L Low 136.0-144.0 [facility] Comment on above: Performed By: #### 1 4150397, 3939540404, 9367262, 3888076, 0938682, 3483555, 49359371 ####[facility] (DEFAULT)[address] [place] [address] Urea nitrogen [Mass/Vol] 7 mg/dL Low 8- [facility] Comment on above: Performed By: #### 1 9300529, 4422236872, 7167635, 2356459, 8125560, 8261655, 69463044 ####[facility] (DEFAULT)[address] [place] [address] Albumin/Globulin [Mass ratio] 1.4 {ratio} Normal 1.4-2.6 [facility] Comment on above: Performed By: #### 1 1454262, 5008103695, 7580875, 7004070, 7819409, 7996087, 89181518 ####[facility] (DEFAULT)[address] [place] [address] 40146 Anion gap [Moles/Vol] 11.3 mmol/L Normal 5.0-19.0 [facility] Comment on above: Performed By: #### 1 4387422, 3433696768, 8523065, 3491585, 6256917, 9433434, 45373050 ####[facility] (DEFAULT)[address] [place] [address] 28707 Globulin (S) [Mass/Vol] 3.0 g/dL Normal 1.5-4.3 [facility] Comment on above: Performed By: #### 1 3857142, 2648571242, 1738002, 1868508, 7178362, 0898105, 24955559 ####[facility] (DEFAULT)[address] [place] [address] Osmolality 259 mOsm/L Invalid Interpretation Code [facility] Comment on above: Performed By: #### 1 6118330, 2582374980, 3574134, 9649972, 4269321, 3748886, 16842240 ####[facility] (DEFAULT)[address] [place] [address] Urea nitrogen/Creatinine [Mass ratio] 9.2 mg/mg Normal 4.6-16.2 [facility] Comment on above: Performed By: #### 1 7591614, 6015199849, 4442154, 4793122, 1393426, 0814880, 02694098 ####[facility] (DEFAULT)[address] [place] [address] Free T4on 12-10-2023 Free T4 [Mass/Vol] 1.16 ng/dL High 0.61-1.12 [facility] Comment on above: Performed By: #### 1 6994555, 9057152695, 8614161, 5509508, 6907701, 6828895, 57524975 ####[facility] (DEFAULT)[address] [place] [address] 92690 Iron Profileon 12-10-2023 Iron [Mass/Vol] 58.0 ug/dL Normal 28.0-170.0 [facility] Comment on above: Performed By: #### 1 6291387, 6460115657, 0028284, 7593385, 3991353, 9511028, 77911632 ####[facility] (DEFAULT)[address] [place] [address] 98149 Transferrin [Mass/Vol] 299.5 mg/dL Normal 192.0-382.0 [facility] Comment on above: Performed By: #### 1 3023342, 8639725024, 2980682, 1332298, 2441900, 4937773, 49283271 ####[facility] (DEFAULT)[address] [place] [address] 95299 Iron Sat 14 % Low 20-55 [facility] Comment on above: Performed By: #### 1 8088491, 3709417100, 6519520, 8864845, 2032490, 8665929, 14599396 ####[facility] (DEFAULT)[address] [place] [address] TIBC 419 mcg/dL High 250-400 [facility] Comment on above: Performed By: #### 1 1485142, 5231644746, 2772568, 4204475, 7611436, 2194055, 68207842 ####[facility] (DEFAULT)[address] [place] [address] Office/Clinic Noteon 024 Office/Clinic Note Patient: HALEY TANG Age: 48 years Sex: FEMALE : 1975 Associated Diagnoses: Alopecia areata Author: Valerio Gaston MD A History of Present Illness 48-year-old female with known high blood pressure and hypothyroidism presents today with complaints of hair loss. She has seen a internet sales associate who recommended getting blood work for evaluation of alopecia. She is currently receiving steroid injections into her scalp but is wondering if there is something metabolic versus this being stress-induced. Patient is under a lot of stress due to her daughter moving back in with her with a baby. It has been over a year since her labs checking her thyroid were done. She is also complaining of significant fatigue. Review of Systems Constitutional: Fatigue, No fever. Respiratory: Negative. Cardiovascular: Negative. Integumentary: Negative except as documented in history of present illness. Health Status Allergies: Allergic Reactions (Selected) No known allergies, Allergies (1) Active Severity Reaction No known allergies None Documented Current medications: (Selected) Prescriptions Prescribed hydroCHLOROthiazide 25 mg oral tablet: 1 tab(s), Oral, Daily, 90 tab(s), 3 Refill(s) levothyroxine 75 mcg (0.075 mg) oral tablet: 75 mcg = 1 tab(s), Oral, Daily, 90 tab(s), 3 Refill(s) Physical Examination VS/Measurements Vital Signs 12/10/2023 11:03 EDT Peripheral Pulse Rate 70 bpm Systolic Blood Pressure 120 mmHg Diastolic Blood Pressure 80 mmHg BP Site Left arm SpO2 100 % , Measurements from flowsheet : Measurements 12/10/2023 11:03 EDT Height 152.4 cm Height/Length Measured (inches) 60 in Weight 64.05 kg Weight Measured (lbs) 141.206 lb Weight Dosing 64.050 kg Body Mass Index 27.58 kg/m2 [place] Body Weight Calculated 45.5 kg BSA Measured 1.65 m2 General: Alert and oriented, No acute distress. Neck: No carotid bruit, No jugular venous distention, No lymphadenopathy, No thyromegaly. Respiratory: Lungs are clear to auscultation, Respirations are non-labored, Breath sounds are equal. Cardiovascular: Normal rate, Regular rhythm, No murmur, Good pulses equal in all extremities. Impression and Plan Diagnosis Alopecia areata (TCY15-FP L63.9). Plan: Will check blood work to rule out possible etiology of her alopecia. She is aware that it could be all related to stress.. Orders Orders Laboratory: CBC w/ Auto Diff (Order): Blood, Routine collect, 12/10/2023, Lab Collect, Fatigue, Order for future visit CMP Standard (Order): Blood, Routine collect, 12/10/2023, Lab Collect, Hyponatremia, Order for future visit Free T4 (Order): Blood, Routine collect, 12/10/2023, Lab Collect, Hypothyroidism, Order for future visit TSH (Order): Blood, Routine collect, 12/10/2023, Lab Collect, Hypothyroidism, Order for future visit Vitamin D 25 Hydroxy Level (Order): Blood, Routine collect, 12/10/2023, Lab Collect, Fatigue, Order for future visit. Orders Laboratory: Iron Profile (Order): Blood, Routine collect, 12/10/2023, Lab Collect, Fatigue, Order for future visit. Orders Evaluation and Management: [id number] Office visit - established pt, Level 3 (Order): 12/10/2023 10:59 EDT, Qty: 1, Alopecia areata - Hypothyroidism - Fatigue. [Electronically Signed on: 12/10/2023 11:26 EDT] Valerio Gaston MD [Verified on: 12/10/2023 11:26 EDT] Valerio Gaston MD Normal [facility] TSHon 12-10-2023 TSH Qn 8.76 m[IU]/L High 0.45-5.33 [facility] Comment on above: Performed By: #### 1 [id number], [id number], 0422059, 1020825, 5930281, 8243660, 97046970 ####[facility] (DEFAULT)[address] [place] [address] Vit D25 OHon 12-10-2023 Vitamin D 25 OH 15 ng/mL Low 30-100 [facility] Comment on above: Performed By: #### 1 [id number], [id number], 4739989, 8059224, 7584644, 4824223, 60820061 ####[facility] (DEFAULT)[address] [place] [address] Ambulatory Visit Summaryon 1 Ambulatory Visit Summary Ambulatory Visit Summary YOLIE TANG :1975 Visit Date:11/17/2023 Ambulatory Visit Instructions Your Diagnosis Liver cyst Abdominal pain Pelvic floor dysfunction Family history of colon cancer Stress-related physiological response affecting medical condition Diarrhea Your Care Team Attending Physician - Chen LESLIE, Angelina Arizmendi Primary Care Physician - VALERIO GASTON MD This Is Your Medications List Contact prescribing physician if questions or concerns hydrochlorothiazide levothyroxine (Synthroid) loperamide (Imodium 2 mg oral capsule) losartan (losartan 25 mg Tab) polycarbophil (Fiber Tabs) Procedures Performed EGD (esophagogastroduodenoscop ic) electrohydraulic lithotripsy of bezoar in stomach (03/30/2023), Colonoscopy (08/07/2022). Discharge Vitals Heart Rate (Peripheral) 71 Respiratory Rate 16 Blood Pressure 136/80 Height 153 cm Height 60 in Weight 64.4 kg Weight 141.68 lb BMI 27.51 What to do next You Need to Complete the Following Clostridium Difficile PCR, Stool, Routine collect, 11/17/23, Order for future visit, Nurse collect, Diarrhea, Print Label By Order Location Medications What How Much When Instructions Unchanged hydrochlorothiazide By Mouth Every day Contact prescribing physician if questions or concerns Unchanged levothyroxine (Synthroid) By Mouth Every day Contact prescribing physician if questions or concerns Unchanged loperamide (Imodium 2 mg oral capsule) 2 Capsules By Mouth Every 6 hours as needed for Diarrhea Contact prescribing physician if questions or concerns Unchanged losartan (losartan 25 mg Tab) 30 tab(s), 0 Refill(s) Contact prescribing physician if questions or concerns Unchanged polycarbophil (Fiber Tabs) Contact prescribing physician if questions or concerns Medications and Immunizations Administered Not Given influenza virus vaccine, inactivated, Patient Refuses Allergies No Known Medication Allergies Problems Ongoing - Any problem that you are currently receiving treatment for. Abdominal pain Abnormal CT scan Diarrhea Family history of colon cancer Hard stool History of colitis Liver cyst Loss of appetite Nausea Pelvic floor dysfunction Stress-related physiological response affecting medical condition Unintentional weight loss Patient Survey You may receive a survey via text or e-mail asking about your office visit. Please share your experience with us by completing your survey. We appreciate your feedback and thank you for choosing us for your care. Normal [place] [facility] Gastroenterology Office/Clin ic Noteon 11-17-2023 Gastroenterology Office/Clinic Note Gastroenterology Office/Clinic Note Chief Complaint 3 MONTH FOLLOW UP HPI Staff This is a 48 year old female who presents today for a 3 month follow up. constipation has resolved, now having diarrhea again. (5-6 BM daily)- not taking anything for it Last visit w/ Dr Siddiqui History of Present Illness pt was having diarrhea now with hard stool was on Imodium but stopped moves her bowels 1-2 times a day straining and incomplete evacuation lost mum in April and had new baby at home (grandson) lots of gas and bloating pt with some weight gain Assessment/Plan 1. Liver cyst (K76.89: Other specified diseases of liver) 2. Hard stool (R19.5: Other fecal abnormalities) 3. Abdominal pain (R10.9: Unspecified abdominal pain) 4. Nausea (R11.0: Nausea) 5. Family history of colon cancer (Z80.0: Family history of malignant neoplasm of digestive organs) 6. Pelvic floor dysfunction (M62.89: Other specified disorders of muscle) 7. Stress-related physiological response affecting medical condition (F54: Psychological and behavioral factors associated with disorders or diseases classified elsewhere) Advised to get squatty potty massage the colon Advised to use MiraLAX and titrate to have 1-2 bowel movements every day Advised to consume prunes and kiwi fruit Advised to get stress under good control Might benefit from pelvic floor evaluation in the future stop Imodium Colonoscopy w/Dr. Adair @ [facility] 08/07/22: Findings: Random biopsies were done using biopsy forceps to assess for microscopic colitis. Terminal ileum: normal Cecum: normal Ascending colon: normal Hepatic flexure: normal Transverse colon: normal Splenic flexure: normal Descending colon: normal Sigmoid colon: normal Rectum: normal Retroflexed views: Rectum did show internal hemorrhoids Recommendations: -Next colonoscopy in 10 years Pathology: Colon, random, biopsy: - Colonic mucosa, no significant histopathologic changes. EGD 03/30/23: Normal esophagus, gastric mucosa and duodenum. Random bx for celiac. Pathology: Final Diagnosis (Verified) DUODENUM, BIOPSY: ? DUODENAL MUCOSA WITHIN NORMAL LIMITS. History of Present Illness I have reviewed HPI staff note, most recent labs and imaging, more than 30 minutes spent reviewing the chart, during encounter, placing orders and counseling the patient. PT with diarrhea loose to watery stool not on laxatives right after eating Review of Systems PHQ Score Initial Depression Screen Score: 0 SCORE All systems reviewed, negative except as mentioned above Physical Exam Vitals & Measurements HR: 71(Peripheral) RR: 16 BP: 136/80 HT: 60 in HT: 153 cm WT: 64.4 kg WT: 141.68 lb BMI: 27.51 General: alert, no acute distress HEENT: atraumatic normocephalic Cardiovascular: regular rate and rhythm, normal peripheral perfusion Respiratory: Lungs CTA, respirations non labored Extremities: no deformity, no trauma Abdomen: Benign, soft, nontender nondistended Assessment/Plan 1. Liver cyst (K76.89: Other specified diseases of liver) 2. Abdominal pain (R10.9: Unspecified abdominal pain) 3. Pelvic floor dysfunction (M62.89: Other specified disorders of muscle) 4. Family history of colon cancer (Z80.0: Family history of malignant neoplasm of digestive organs) 5. Stress-related physiological response affecting medical condition (F54: Psychological and behavioral factors associated with disorders or diseases classified elsewhere) 6. Diarrhea (R19.7: Diarrhea, unspecified) Advised to get stress under good control Start Questran 4 g twice daily Start Elavil 25 mg Check C. difficile and stool culture Follow-up No qualifying data available Problem List/Past Medical History Ongoing Abdominal pain Abnormal CT scan Diarrhea Family history of colon cancer Hard stool History of colitis Liver cyst Loss of appetite Nausea Pelvic floor dysfunction Stress-related physiological response affecting medical condition Unintentional weight loss Historical No qualifying data Procedure/Surgical History EGD (esophagogastroduodenoscop ic) electrohydraulic lithotripsy of bezoar in stomach (03/30/2023), Colonoscopy (08/07/2022). Medications Fiber Tabs hydrochlorothiazide, Oral, Daily Imodium 2 mg oral capsule, 4 mg= 2 cap(s), Oral, q6hr, PRN, 1 refills losartan 25 mg Tab Synthroid, Oral, Daily Allergies No Known Medication Allergies Social History Alcohol Current, Wine, Daily, 08/17/2023 Tobacco Former smoker, quit more than 30 days ago Tobacco Use:. Never, Current vaping or e-cigarette use Smokeless Tobacco Use:. Cigarettes, Vaping, Yes, 11/17/2023 Former smoker, quit more than 30 days ago Tobacco Use:. Never Smokeless Tobacco Use:. Cigarettes, 07/02/2023 Family History Primary malignant neoplasm of colon: Grandparent. Immunizations Vaccine Date Status Comments influenza virus vaccine, inactivated - Not Given Patient Refuses tetanus- (more content not included)... Normal [facility] Comment on above: Result Comment: Elec tronically Signed By: Chen LESLIE, Angelina Arizmendi\.br\Date and Time Signed: 11/17/23 12:44 EDT Coding Summaryon 08-25-2023 Coding Summary HTMLBase 64 VgejwjloKZq8sRl+PGhlYWQ+PE 2HQEIyX27ydVTeoV8bT0UEEUeE IejfETCUUFvSQaDsloRxTF8gmZ NjZXJu IC8+SH3eUPJtIseruDYrh5Y1sC N4N90qit3qSOnsnUX4CBXtZtSq zvdzc8mxaJa9WOivVgkfVtKp DHXthH10RTZ9kH29Pr18fNWcbY Khx0rzwXz3IiXhIMUpBUL0jQqo OAkwz8KbTKUiZ54ecAArb1W0 SPUhmUuxdBTiUvKheRM9eD9uMC twfwdkh1ksxuhgFwr6yq67eYPl l6G5vSL3D5AqsqN5UIEyaKQl EqntkPHUkR4xttgvh9mxtblhMh HsMRYmHXi3ABg4UELafXuwRdXq RK76BHN5CEGexgLkE5AvDREb aTynKxN5a6A1Rh2WP2ZKIkwoK4 VNTUFSWTwvdGQ+SP98kx98O9Ga PjpaDgw3AOGdAXV6uOO3rR0r FGWxBFvhw0K6sYX5C7JzlxHlew 7aj1keFUNsHUgzQ63xaQOga0A0 LVZlbDW2ZGNzqIavEcExrP06 Oyc+MWBmoSzms1FhIijno6lwi8 asjTh3IkzkOHWtpzMgzPrtUXU9 x8CgXd6qWZNpfBU3lXV8nU8c YmLhLhO8RMjmA564QeOpvMIiNt dwN75sO5XovCI+JPEdUrn8RJFn rTaiBQ2wD4SpRKUkciaogEEf aVeyZH4bLEZqobmpKMSirM5uQJ KjG0g4VwDyXgS7PMqmA3KfFGFg madzNh70gK9yIgJvVrG4AEjc J4LkvgA7ETXnbXRoEXsmANG8G6 7fi1P9QPAySNAlGZG7sYT8sF8f bGlnbjogbGVmdDsgdmVydGlj CGogURwzP177BXOeyVtiFpVwMK luZyBEYXRlOiAgMDcvMTcvMjAy NDwvdGQ+RPUaOPY6eEbaNNUo lGBmXCmmHs6guJnwnItoGR3hDP RetilxXTQaxW8nXXRczQTzqJnv GJ9tSVMfabpxg979VnAqXLC5 OVFyrUNrP4KnzF5mWfUbBGEvHJ YqJ8RdyVFvFJlzL586GShwXgH3 IMIfwpOkY3KoFYKfsWjkDnH8 p2Q7Hl9Jy6CyiskpA2DekYWgGg CzGmmqMSf7R8KqHtbauBJ+PC90 PCPtBV11HEe3YZY4lPnxGRkq TCTyZ3YptF7xWiJfOUGkZQYzTz c+PHRhYmxlIHdpZHRoPScxMDAl IkMqtGnmYT7rPj1vHACfIAOa xTvedFZaWxQze1nlELAmGYbeIS 3edUmbS2JgvVB0RMEdw1g4Se32 R55gN3UxdKG+BNKunIU9fWM7 bG1qZeMfMpN5HUxwF473YxBxcP PhPpejn8srn9tkeZt4RpD5AFJp vkAieMmfIEB8x2OmDg15T12i IHdpZHRoPSIxNSUiIHZhbGlnbj 6ilE2mRk0+JZWgmJG1dPF3lW0t WnHkGqR8LGlfF719FyFajPXg Iezld0bxf4jekHu5ViBtQGAaus SnkJggFGJ5e1VyId35K9XbjUcz r9QwKjy6oe67jTHou2E3vSC7 T0NhGNYmnmekjTCdhGqzYW1kKH LoxlppPJPonC3lFBJrY9c8PhJz IzC2QTnwT4ZvcnP9ZEKryBMx ENFzrAFAiF4izgsds6nlhnkkXo VhXZLmQCl3EQn4GOIbqMgdLxBc LED8IbR4QBM9cHOjaL3cvZfa wxqunI1yXhm+FJI3aIYflMLYXY 1lOjwvdGQ+LYLfTQY1lSneEZht YPTwiH6hKRUnW8s4QbFjEwQ8 XJqoR9TsfwD9QCKsnMRzLXBqaP NIfY5ndcqtb0lhytrgUmUeXJMy SKn2VLe4ZFDoiJrpDcWsGUE4 WoH4DBF5dSRzkY8vpOiarlzalX 9wOyc+QjjnyKgbMYF0LEt4Y1Fk Exl6MFBdzRapUJ3bdDZmVVbc Rs9zbMbtzWwxZJ5iBKRbtwhyh0 14DgMtk3jmXAXllOEgJPuoIES5 E93ss7X4BBJrWTVgRLE0cOM1 fV0uxCnqvmcojICxzYdbprJkwB buTQynKUlrK773NOPubImgYgNr ZKt3E6IgEhj2YTGveLofJO8g wINaSFuvJt6ekYsarMyaLU4yAL Fsmhpqb785OiWlw3wbDTKfmOGs VQarHBT9J57el6H6RIWdZNIf MMZ4pWS2sZ7cpJwvdgjicSHjrR xpczRhtMugXYlpDVebR281KPVc pLhyItFzrRf3C5ScHri0CRYb lXqcPV0cjVZfSVtjTz3jcMakcE iqVN5bYMDpgwzay716CkEjv6ug LAIryMOcYUrsKQD8P02ly0W5 YJTfHTFvNVX1uQR0uR1ydUjonh ogbGVmdDsgdmVydGljYWwtYWxp O093TMDhcQydQbWmdAvwglEr ZKlzHMt7L2ImQteefFA+PC90YW VbDI16gBEagOIar2inbUg1FbVd AMXpBAR2jTxmONtgp0HqSKPc C44orROsl2Y4DYUsiBbacOGuOv OzbLI7dJ4bVSjhuyjak7qecnrz Wmvni8qjfg33wF22Q83yPItf HCAlMOQoLQFmOXJvaVutkb4lpJ 9wIi8+VZZdzUR9oYP7kQ5pZTLl UkX7JYksB740BqLzuUXfUrnu l0san7cieWg9OqR5SHQdbyKhrO euWKW2b3VhFu31L05hMDxsBLWw BTOcMGJlUSJnyZxzte7ygE2u Ii8+ZVRhpYI9fTD6nG2aXcGcTs F1HHuiU913UkXcrWJxHbjqA06p K9JitES+LALkFey9NHDhnTlr OJ7aeUExTUdbNa0eFUK7GfOyNh BnTDhvU6AsOFZubrmkilahbIN1 RIPkVTHlxM80Vn1ndWpkQXBc xDNEwK0utarlq5ykhsvoTzIkWE JaTXh0UGy7IJLehUbuVsSiTEJ0 FwZ3CNL3jQTtcJ2lrAmrnamh zV7lH3ZrICZmvlzoZp18uN2qTu LzKkC4PJbsTrk+Pq5YVeODWhxd TUlDSEVMTEUgTDwvdGQ+PHRk NUI7vTvzHDqbYTAndB9zAJPbH3 s4ZoSsHgZ7LQshO6NbDEUzrmkm Jp12fP1uKhSqRiJ7GOfdL8Nb lsC0ZIOegAIiIXdhBSH3D52rv9 B3VMIqCHZvFEN6uJH1gT9kcZee bjogbGVmdDsgdmVydGljYWwt MCbzX020XTWzbMllRzEmAeB2Ab D3Lze2R9CgYhj6MQKreEyaWV4p eDXlHIxvMc2jsTeigVcyWV2j VWZuduxpHGJxqR3bKLRhnRUosL olWW8rVFAmmzmsv141ApGgEIV9 DATcdUTtU1MgfE8gJhVsOFUd QXMvU8VxqMBmMPefQ055KThlZt G3QDXkwuTkY4ItJVGwdRusVtP1 l9V1Gr42HyQMOKIdwxxrnTD+ JNXgVMW9eVpiBGkyDFDhwI8jRP UrQ6r2OrBhJvO7VSswX0NkLQLr zaqlSv63wP2tQuAhQrE1UMtm I2XxkhB2HSApqOKwDUkcNIN4H9 8vk6C4JQObJBKeADI6mPE3jR6t bGlnbjogbGVmdDsgdmVydGlj YHbxWKdzO954UZLemIhbAiQDKQ FMRTwvdGQ+TYWxYYK6dHvoARso AWUnzV6gDHFnP3q0KoYaXkB0 PJgkG7QcFTMsqgriAn46zG3aSt YjZoJ0YZxyC8LupdT0TBUqeAOl POsrKUN5P92dd2N2FIRhJRAo BIT7aNK4jN9ziSsnufytrOXbfT okfjGqxDtsRSyaILnhB979GDQu nGyiRw9IHN45FK18N3ImWmub dGFibGU+PHRhYmxlIHdpZHRoPS rmMZGlBjPccEiqZE0qEa1rIPPr SYRjlUjiaBSpRoDuw5vmOQJv FVwxGO9yaIktA2AdfZQ9UNKrw3 a9Kn15O03fQ9DbiKO+PGNvbCB3 bWI8jI7iVpOmTnI3SEpuZ679 GfRsoUXxEdepy3whc2prcDn6Fb JmGMBcwfUeaKffDKU4t2OyLv09 E31vOLetLZNpDUJbRXLlCZYw oRjsmx0iaZ4hJs4+BNDihLM2pB X4eP2bVvRcNnQ8WXuiZ755QtFd eKHpJvghG22yN5EhwFU+PHRy Btm5PYEatXhsQB5jwEBjYYbtMx 4wDFH5UgIzQpVgLUlwE2UaPDEb fwprmbruvSY9TRTsFZNmlS20 Wl3uoEztLr5qCLHtNSE9IYNyoW UoW5JodG7nSzWsYBVjBLEdO6Lh pKNbJRogC626OGpjXfS7RMYg xdRgR5JsZHNhnAqrMdQ1s6L2Yz 7IiBltiQGiKD2kNwXdYQk5L2Wr Kfy0AYCzhBncZO9hrRDnDHrr Ah5dgVmshFimGX0jCEHxdlbzx9 51XbPpg1cnYCDhlZQhJOfhLFF1 O16yo5U6NLNeWOKaNKK4zMV9 yH2jvDeucjmetZSzpDcqilOxpS tzVRldYDalF793GATqdLzvEvTI Qff2T0MqYcm4MMWzuMdoGK7g dWKkNFfcEx9ugBhwvEpsIZ7bPM Anoxydl034GcQwi0pkGGJaqEKw UUdbWDN3Q42jl2A7MFBmJFZq NDS8jDR1kS1ahZpafiogmJUvgT eeipRkhYeaWWuqWHunN911MHNs tDoaSa4VCaq5Z1NkZzb1KQBw nWyiXU6rrQMvBOrmSs8dwHghmV ffNW5oCXKaabyot245BhUpp3pu XNUauTWwIUsxETZ1N03gj4N0 SEWaZVMjCGK5eFK9pC2fhUumpk ogbGVmdDsgdmVydGljYWwtYWxp A847YOSwxGbdAkGawADkMbhy dGQ+KF83dt78V5CjQttbEcp2LW UwERY3bWT1qJ7kZANvAYdow3G6 nTY8W1UzuuEjyu5pv6dfNQYp ZTo (more content not included)... Normal [facility] eGFR Non AA >60 Invalid Interpretation Code [facility] Comment on above: Performed By: #### 1 [id number] ####[facility] (DEFAULT)[address] [place] [address] eGFR AA >60 Invalid Interpretation Code [facility] Comment on above: Performed By: #### 1 [id number] ####[facility] (DEFAULT)[address] [place] [address] 80771 Albumin [Mass/Vol] 4.1 g/dL Normal 3.5-5.0 [facility] Comment on above: Performed By: #### 1 [id number] ####[facility] (DEFAULT)[address] [place] [address] 67861 Albumin/Globulin [Mass ratio] 1.4 {ratio} Normal 1.4-2.6 [facility] Comment on above: Performed By: #### 1 [id number] ####[facility] (DEFAULT)[address] [place] [address] 82232 Alk Phos 55 IU/L Normal 32-91 [facility] Comment on above: Performed By: #### 1 [id number] ####[facility] (DEFAULT)[address] [place] [address] 80006 ALT [Catalytic activity/Vol] 9.0 U/L Low 14.0-54.0 [facility] Comment on above: Performed By: #### 1 [id number] ####[facility] (DEFAULT)[address] [place] [address] 08586 Anion gap [Moles/Vol] 9.9 mmol/L Normal 5.0-19.0 [facility] Comment on above: Performed By: #### 1 [id number] ####[facility] (DEFAULT)[address] [place] [address] 27681 AST [Catalytic activity/Vol] 14 U/L Low 15-41 [facility] Comment on above: Performed By: #### 1 [id number] ####[facility] (DEFAULT)[address] [place] [address] 59067 Bili Total 1.0 mg/dL Normal 0.3-1.2 [facility] Comment on above: Performed By: #### 1 [id number] ####[facility] (DEFAULT)[address] [place] [address] 75902 Calcium [Mass/Vol] 8.8 mg/dL Low 8.9-10.3 [facility] Comment on above: Performed By: #### 1 [id number] ####[facility] (DEFAULT)[address] [place] [address] 67783 Chloride [Moles/Vol] 98 mmol/L Low 101-111 [facility] Comment on above: Performed By: #### 1 [id number] ####[facility] (DEFAULT)[address] [place] [address] 36484 CO2 [Moles/Vol] 25 mmol/L Normal 21-32 [facility] Comment on above: Performed By: #### 1 [id number] ####[facility] (DEFAULT)[address] [place] [address] 09680 Creatinine [Mass/Vol] 0.65 mg/dL Normal 0.60-1.30 [facility] Comment on above: Performed By: #### 1 [id number] ####[facility] (DEFAULT)[address] [place] [address] 50689 Globulin (S) [Mass/Vol] 2.9 g/dL Normal 1.5-4.3 [facility] Comment on above: Performed By: #### 1 [id number] ####[facility] (DEFAULT)[address] [place] [address] 84818 Glucose [Mass/Vol] 93.0 mg/dL Normal 74.0-118.0 [facility] Comment on above: Performed By: #### 1 [id number] ####[facility] (DEFAULT)[address] [place] [address] 58083 Osmolality 256 mOsm/L Invalid Interpretation Code [facility] Comment on above: Performed By: #### 1 [id number] ####[facility] (DEFAULT)[address] [place] [address] 77792 Potassium [Moles/Vol] 3.9 mmol/L Normal 3.6-5.1 [facility] Comment on above: Performed By: #### 1 [id number] ####[facility] (DEFAULT)[address] [place] [address] 29060 Protein [Mass/Vol] 7.0 g/dL Normal 6.5-8.1 [facility] Comment on above: Performed By: #### 1 [id number] ####[facility] (DEFAULT)[address] [place] [address] Sodium [Moles/Vol] 129.0 mmol/L Low 136.0-144.0 [facility] Comment on above: Performed By: #### 1 [id number] ####[facility] (DEFAULT)[address] [place] [address] 79051 Urea nitrogen [Mass/Vol] 6 mg/dL Low 8-26 [facility] Comment on above: Performed By: #### 1 [id number] ####[facility] (DEFAULT)[address] [place] [address] 59322 Urea nitrogen/Creatinine [Mass ratio] 9.2 mg/mg Normal 4.6-16.2 [facility] Comment on above: Performed By: #### 1 [id number] ####[facility] (DEFAULT)[address] [place] [address] 56370 Office/Clinic Noteon 024 Office/Clinic Note Patient: HALEY TANG Age: 48 years Sex: FEMALE : 1975 Associated Diagnoses: Hypokalemia; Hypertension; Hepatic cyst; Renal cyst; Uterine fibroid Author: Valerio Gaston MD A History of Present Illness 48-year-old female who was last seen back in December for colitis and was referred to gastroenterology. In the May she had a CT scan which showed a cyst in her liver couple cysts in her kidneys and a uterine fibroid measuring 1.5 cm. She has an appointment on Wednesday to follow-up with her trip follower. Also the plan was to just monitor the cysts with a repeat imaging study a few months later. She was also concerned because blood work showed her potassium to be slightly low at 3.3. She is on blood pressure medications. At 1 point she was on losartan and hydrochlorothiazide but according to records she has not been on the losartan for the last 2 weeks. Blood pressure is well-controlled. Denies any shortness of breath, chest pain, palpitations. Review of Systems Constitutional: Negative. Respiratory: Negative. Cardiovascular: Negative. Gastrointestinal: Negative except as documented in history of present illness. Health Status Allergies: Allergic Reactions (Selected) No known allergies, Allergies (1) Active Severity Reaction No known allergies None Documented Current medications: (Selected) Prescriptions Prescribed ergocalciferol 1.25 mg (50,000 intl units) oral capsule: See Instructions, TAKE ONE CAPSULE BY MOUTH EVERY OTHER WEEK ON WEDNESDAY, 6 cap(s), 9 Refill(s) hydroCHLOROthiazide 25 mg oral tablet: 1 tab(s), Oral, Daily, 90 tab(s), 1 Refill(s) levothyroxine 75 mcg (0.075 mg) oral tablet: 75 mcg = 1 tab(s), Oral, Daily, 90 tab(s), 3 Refill(s) losartan 25 mg oral tablet: 1 tab(s), PO, Daily, 30 tab(s), 5 Refill(s), Home Medications (4) Active ergocalciferol 1.25 mg (50,000 intl units) oral capsule See Instructions hydroCHLOROthiazide 25 mg oral tablet 1 tab(s), Oral, Daily levothyroxine 75 mcg (0.075 mg) oral tablet 75 mcg = 1 tab(s), Oral, Daily losartan 25 mg oral tablet 1 tab(s), PO, Daily Problem list: Active Problems (7) Anxiety Colitis Diastasis recti Hypertension Hypothyroidism Nerve palsy Peroneal nerve palsy Physical Examination Vital Signs 08/13/2023 9:32 EDT Peripheral Pulse Rate 69 bpm Pulse Site Pulse Oximetry Systolic Blood Pressure 122 mmHg Diastolic Blood Pressure 90 mmHg BP Site Left arm SpO2 100 % Measurements from flowsheet : Measurements 08/13/2023 9:32 EDT Weight 63.5 kg Weight Measured (lbs) 139.993 lb Weight Dosing 63.500 kg Documented vital signs: Blood Pressure: Systolic 118 mmHg, Diastolic 70 mmHg. General: Alert and oriented, No acute distress. Neck: No carotid bruit, No jugular venous distention, No lymphadenopathy. Respiratory: Lungs are clear to auscultation, Respirations are non-labored, Breath sounds are equal. Cardiovascular: Normal rate, Regular rhythm, No murmur. Impression and Plan Diagnosis Hypokalemia (WVX78-DE E87.6). Plan: Will repeat blood work checking her potassium level. Will call with results.. Orders Orders Laboratory: [facility] Standard (Order): Blood, Routine collect, 08/13/2023, Lab Collect, Hypokalemia, Order for future visit. Orders Evaluation and Management: [id number] Office visit - established pt, Level 4 (Order): 08/13/2023 9:26 EDT, Qty: 1, Hypokalemia - Hypertension - Renal cyst - Hepatic cyst - Uterine fibroid. Diagnosis Hypertension (VGI83-UR I10). Course: Blood pressure is stable just on hydrochlorothiazide. Will hold off on restarting losartan.. Diagnosis Hepatic cyst (PEC84-DE K76.89). Course: Reviewing her lab work liver function was normal. Will continue to monitor. Discussed with patient this is most likely just an incidental finding.. Diagnosis Renal cyst (DVB95-EP N28.1). Course: Renal function is normal. Discussed with patient most likely incidental finding.. Diagnosis Uterine fibroid (MRH78-KI D25.9). Course: Discussed with patient about potentially following up with her test administrator. Reviewed signs and symptoms of issues with fibroids.. [Electronically Signed on: 08/13/2023 10:07 EDT] Valerio Gaston MD [Verified on: 08/13/2023 10:07 EDT] Valerio Gaston MD [facility] Outside Recordson 08-02-2023 Outside Records [id number]#[id number] [place] Auth for Release of Medical Recordson 07-29-2023 Auth for Release of Medical Records [id number]#[id number] [facility] Outside Recordson 07-09-2023 Outside Records [id number]#1.00[facility] [place] Calprotectin, Fecalon 2023 Calprotectin (Stl) [Mass/Mass] 9 mcg/gm Invalid Interpretation Code 0-120 [facility] Comment on above: Result Comment: Conc entration Interpretation Follow-Up < 5 - 50 ug/g Normal None >50 -120 ug/g Borderline Re-evaluate in 4-6 weeks >120 ug/g Abnormal Repeat as clinically indicated Performed at: [facility] [id number] MD Amaury Branham Performed By: #### 1 [id number] #### [facility] [address] [place] [address] Giardia, Direct, EIAon 07-06 G. lamblia Ag IA Ql (Stl) Negative Invalid Interpretation Code Negative [facility] Comment on above: Result Comment: Perf ormed at: [facility] [id number] PhD Janet Whatley Performed By: #### 1 [id number] #### [facility] [address] [place] [address] Pancreatic Elastase, Fecalon 07-07-2023 Elastase.pancreatic (Stl) [Mass/Mass] >800 Invalid Interpretation Code >200 [facility] Comment on above: Result Comment: Sara re Pancreatic Insufficiency: <100 Moderate Pancreatic Insufficiency: 100 - 200 Normal: >200 Performed at: [facility] [id number] MD Amaury Branham Performed By: #### 1 [id number] #### [facility] [address] [place] [address] Physician Referralon 024 Physician Referral [id number]#[id number] Normal [facility] Reminderson 07-06-2023 Reminders - From: Chantel Christian CNP To: Chantel Christian CNP; Sent: 07/02/2023 09:22:21 EDT Show up: 07/02/2023 09:23:00 EDT Subject: Ambulatory Reminder Reminder/Recall Call patient to see how she is doing. Attempted to call patient to see how she is doing. Was unable to reach at this time. Left voicemail to return call. Normal [facility] Ambulatory Visit Summaryon 0 07-02-2023 Ambulatory Visit Summary YOLIE TANG :1975 Visit Date:07/02/2023 Ambulatory Visit Instructions Your Diagnosis Abnormal CT scan Liver cyst Hard stool Abdominal pain Nausea Diarrhea Unintentional weight loss Loss of appetite Family history of colon cancer Your Care Team Attending Physician - Chantel Christian CNP Primary Care Physician - VALERIO GASTON MD This Is Your Medications List Contact prescribing physician if questions or concerns hydrochlorothiazide levothyroxine (Synthroid) loperamide (Imodium 2 mg oral capsule) losartan Procedures Performed EGD (esophagogastroduodenoscop ic) electrohydraulic lithotripsy of bezoar in stomach (03/30/2023), Colonoscopy (08/07/2022). Discharge Vitals Temperature (Temporal Artery) 36.1 ?C Heart Rate (Peripheral) 67 Blood Pressure 125/81 Height 153 cm Height 60 in Weight 62.4 kg Weight 137.28 lb BMI 26.66 What to do next Scheduled Follow-Up Appointments Wednesday 1:45 PM EDT With: Chen LESLIE, Angelina Arizmendi Where: [facility] Invalid Interpretation Code Abdominal pain [facility] Gastroenterology Office/Clin ic Noteon 07-02-2023 Gastroenterology Office/Clinic Note Chief Complaint Nausea and diarrhea HPI Staff This is a 48 year old female who presents today for a follow-up from 06/01/23 office visit, labs and CT. History of Present Illness Patient is a 48-year-old female who presents for follow-up. Patient was previously evaluated 06/01/2023 and had previous EGD 03/30/2023. Patient was previously evaluated by Dr. Fuentes 03/04/2023 and previous review of note from visit indicated patient with history of colitis, diarrhea, abdominal pain, loss of appetite, and nausea. Presents with her significant other today. Patient with family history of colon cancer?patient's maternal grandfather. Previous colonoscopy at [facility] 07/2022 that revealed biopsy with no significant histopathologic changes, normal colonoscopy and is due for repeat in 5 years- 2027. Patient was ordered by Dr. Fuentes stool testing, celiac serology, stool testing for fecal pancreatic elastase per office visit note. EGD completed 03/30/2023 revealed normal esophagus, normal gastric mucosa, normal duodenum, duodenal biopsy within normal limits. Presents with significant other today. Denies FH ulcerative colitis or Crohn's. Patient reported during most recent visit with me that over the last 30 years she has been experiencing generalized abdominal pain that had improved some. She reported diarrhea was occurring daily and at times occur with nausea. She also reported losing 30 pounds in the last 4 months unintentionally and was having loss of appetite that had not improved. She reported having 4-5 loose watery stools daily and as of recent was having difficulty with pushing/straining to have a bowel movement. Patient was ordered CMP, CT abdomen/pelvis and advised to complete previously ordered testing. Patient was also ordered TSH. Patient was also educated regarding fiber supplementation daily. Labs completed 06/01/2023 revealed normal BUN, normal creatinine, low potassium of 3.3?patient was advised to eat 1 banana a day and to follow-up with PCP regarding low potassium, normal LFTs, normal TSH. No CBC or celiac serology available to review during today's encounter and no stool testing results to review. CT abdomen/pelvis 06/28/2023 revealed small cysts in the liver, very small cysts in kidneys?patient to follow-up with PCP regarding, likely 1.5 cm uterine fibroid?patient advised to follow-up with [facility] regarding. During today's visit, patient reports she is currently having predominantly constipation over the last week. Is having to push/strain to have a BM with some hard consistency to stools. Is not currently taking Imodium. Is having improvement in diarrhea. She explains she is having generalized abdominal pain described as achy over the last 30 years, occurring daily. Generalized abdominal pain improves when laying down. Is having associated nausea with abdominal pain daily. She explains appetite has improved. She reports she has gained some weight- approximately 2-3 pounds. Per review of record, patient has gained approximately 1 pound. Denies black/bloody stools, vomiting, fevers/chills, and denies having any other GI complaints. Review of Systems PHQ Score Initial Depression Screen Score: 0 SCORE ROS - Provider Constitutional: no fever, no chills. Skin: no Jaundice. ENMT: Denies dysphagia and heartburn. Respiratory: no shortness of breath. Cardiovascular: no chest pain. Gastrointestinal: yes nausea, no vomiting, yes diarrhea, no GI bleeding. Physical Exam Vitals & Measurements T: 36.1 ?C(Temporal Artery) HR: 67(Peripheral) BP: 125/81 HT: 60 in HT: 153 cm WT: 62.4 kg WT: 137.28 lb BMI: 26.66 General: Well developed, well nourished, in no acute distress Head: Normocephalic/atraumatic Lungs: Normal respiratory effort and clear to auscultation Cardio: Regular rate and rhythm, normal S1 and S2, no murmur, no rub Abdomen: Soft, non-distended, non-tender. Normoactive bowel sounds present in all 4 abdominal quadrants, bilaterally. Mental Status: Alert and oriented x3. Normal mood and affect Assessment/Plan 1. Abnormal CT scan (R93.89: Abnormal findings on diagnostic imaging of other specified body structures) CT abdomen/pelvis 06/28/2023 revealed small cysts in the liver, very small cysts in kidneys?patient to follow-up with PCP regarding, likely 1.5 cm uterine fibroid?patient advised to follow-up with [facility] regarding. Ordered referral to [facility] regarding uterine fibroid. Ordered: [facility] External Ambulatory Referral 2. Liver cyst (K76.89: Other specified diseases of liver) CT abdomen/pelvis 06/28/2023 revealed small cysts in the liver, very small cysts in kidneys?patient to follow-up with PCP regarding, likely 1.5 cm uterine fibroid?patient advised to follow-up with [facility] regarding. Discussed CT with liver protocol to further evaluate liver cysts- patient agreeable-Ordered CT with liver protocol to further evaluate liver cysts. 3. Hard stool (R19.5: Other fecal abnormalities) Hard stool daily over the last week. Rice (more content not included)... Normal [facility] Comment on above: Result Comment: Elec tronically Signed By: Chantel Christian CNP\.romulo\Date and Time Signed: 07/02/23 09:30 EDT Patient Educationon 07-02-19 Patient Education Gastroenterology Abdominal Pain, Adult Pain in the abdomen (abdominal pain) can be caused by many things. Often, abdominal pain is not serious and it gets better with no treatment or by being treated at home. However, sometimes abdominal pain is serious. Your health care provider will ask questions about your medical history and do a physical exam to try to determine the cause of your abdominal pain. Follow these instructions at home: Medicines ? Take owxe-gmq-rphyexk and prescription medicines only as told by your health care provider. ? Do not take a laxative unless told by your health care provider. General instructions ? Watch your condition for any changes. ? Drink enough fluid to keep your urine pale yellow. ? Keep all follow-up visits as told by your health care provider. This is important. Contact a health care provider if: ? Your abdominal pain changes or gets worse. ? You are not hungry or you lose weight without trying. ? You are constipated or have diarrhea for more than 2?3 days. ? You have pain when you urinate or have a bowel movement. ? Your abdominal pain wakes you up at night. ? Your pain gets worse with meals, after eating, or with certain foods. ? You are vomiting and cannot keep anything down. ? You have a fever. ? You have blood in your urine. Get help right away if: ? Your pain does not go away as soon as your health care provider told you to expect. ? You cannot stop vomiting. ? Your pain is only in areas of the abdomen, such as the right side or the left lower portion of the abdomen. Pain on the right side could be caused by appendicitis. ? You have bloody or black stools, or stools that look like tar. ? You have severe pain, cramping, or bloating in your abdomen. ? You have signs of dehydration, such as: ? Dark urine, very little urine, or no urine. ? Cracked lips. ? Dry mouth. ? Sunken eyes. ? Sleepiness. ? Weakness. ? You have trouble breathing or chest pain. Summary ? Often, abdominal pain is not serious and it gets better with no treatment or by being treated at home. However, sometimes abdominal pain is serious. ? Watch your condition for any changes. ? Take zwwb-zth-xhrrpsq and prescription medicines only as told by your health care provider. ? Contact a health care provider if your abdominal pain changes or gets worse. ? Get help right away if you have severe pain, cramping, or bloating in your abdomen. This information is not intended to replace advice given to you by your health care provider. Make sure you discuss any questions you have with your health care provider. Document Revised: 03/15/2020 Document Reviewed: 06/05/2019 [employer] Patient Education ? 2022 [employer] Stella [facility] Outside Recordson 06-29-2023 Outside Records [id number]#1.00OTGTIFF [facility] CT Abdomen/Pelvis w/ Contras ton 06-28-2023 CT Abdomen/Pelvis w/ Contrast Exam Date/Time: 06/28/2023 11:16 EDT Reason for Exam: generalized abdominal pain;Other (please specify) Report IMPRESSION: NO ACUTE INTRA-ABDOMINAL PROCESS IDENTIFIED. CHRONIC FINDINGS, NOTED. EXAM: CT Abdomen/Pelvis w/ Contrast DATE: 06/28/2023 CLINICAL HISTORY: generalized abdominal pain. COMPARISON: None available. TECHNIQUE: Spiral imaging was obtained of the abdomen and pelvis after the uneventful infusion of approximately 100 mL of Isovue 300 contrast. Oral contrast was used for bowel opacification. All CT scans at this facility use dose modulation, iterative reconstruction, and/or weight based dosing when appropriate to reduce radiation dose to as low as reasonably achievable. Unless otherwise stated, incidental findings identified in this report do not require routine follow-up imaging. FINDINGS: Liver: No enlargement, significant fatty infiltration, suspicious mass or lesion. A few very small nonenhancing fluid density cysts. Biliary: The gallbladder is unremarkable. No abnormal biliary ductal dilatation. Pancreas: No mass, organized fluid collection, or abnormal pancreatic ductal dilatation. Spleen: Unremarkable. Adrenals: Unremarkable. Kidneys: No hydronephrosis, significant urinary tract calculi, or suspicious mass. A few very small nonenhancing fluid density cysts. GI tract: No abnormal dilation or wall thickening. Normal appendix. Lymph nodes: No pathologically enlarged lymph nodes. Mesentery/peritoneum: No ascites or mass. Retroperitoneum: No inflammatory changes or mass. Pelvis: Probable 1.5 cm uterine fibroid arising from the fundus. Fallopian tube implants in expected positions. The urinary bladder and adnexa are unremarkable. No suspicious mass, organized fluid collection, or ascites. Vasculature: No aneurysm or dissection. Minimal calcified atherosclerotic plaquing. Musculoskeletal: No acute osseous findings. Lower thorax: Noncontributory. Report Ordering Provider: , FINAL REPORT Dictated: 06/28/2023 11:33 am Roman Soares MD Signed (Electronic Signature): 06/28/2023 11:33 am Signed by: Roman Soares MD Transcribed by: AVILA Technologist: PATRICK Technical Comments GFR (mL/min/1/73m2) na Contrast: Isovue 300 Contrast amount in ml's: 100 Rectal Contrast Given? No Oral contrast amount in ml's: 900 Normal [facility] Consent for Treatmenton 06-09 Consent for Treatment [id number]#1.00TIFF Normal [facility] Physician Orderon 06-28-2023 Physician Order [id number]#1.00TIFF Normal [facility] Lab - Other Lab Resultson Lab - Other Lab Results [id number]#1.00OTGTI FF [facility] CHEMISTRYOrdered By: SYSTEM SYSTEM on 06-01-2023 Albumin [Mass/Vol] 4.1 g/dL Normal 3.3 - 5.0 gm/dL Remisol Chem Albumin/Globulin [Mass ratio] 1.5 {ratio} Normal 1.1 - 2.2 Remisol Chem ALP [Catalytic activity/Vol] 65 [iU]/d Normal 21 - 98 Int._Unit/L Remisol Chem ALT No additional P-5'-P [Catalytic activity/Vol] 7 [iU]/d Normal 6 - 46 Int._Unit/L Remisol Chem Anion gap [Moles/Vol] 12 mmol/L Normal 6 - 16 mEq/L Remisol Chem AST [Catalytic activity/Vol] 16 [iU]/d Normal 5 - 43 Int._Unit/L Remisol Chem Bilirubin [Mass/Vol] 0.6 mg/dL Normal 0.0 - 1.1 mg/dL Remisol Chem Calcium [Mass/Vol] 9.0 mg/dL Normal 8.9 - 11. 1 mg/dL Remisol Chem Chloride [Moles/Vol] 100 mmol/L Low 101 - 111 mmol/L Remisol Chem CO2 [Moles/Vol] 26 mmol/L Normal 21 - 31 mmol/L Remisol Chem Creatinine [Mass/Vol] 0.7 mg/dL Normal 0.5 - 1.3 mg/dL Remisol Chem eGFR 107 mL/min/1.73 m2 Normal >=59mL/mi n/1 .73 m2 Remisol Chem Globulin (S) [Mass/Vol] 2.7 g/dL Normal 1.4 - 4.0 gm/dL Remisol Chem Glucose [Mass/Vol] 94 mg/dL Normal 55 - 199 mg/dL Remisol Chem Potassium [Moles/Vol] 3.3 mmol/L Low 3.5 - 5.3 mmol/L Remisol Chem Protein [Mass/Vol] 6.8 g/dL Normal 6.0 - 7.8 gm/dL Remisol Chem Sodium [Moles/Vol] 135 mmol/L Normal 135 - 145 mmol/L Remisol Chem TSH Qn 0.75 m[IU]/L Normal 0.34 - 5.60 mcIU/mL Remisol Chem Urea nitrogen [Mass/Vol] 5 mg/dL Normal 5 - 21 mg/dL Remisol Chem Urea nitrogen/Creatinine [Mass ratio] 7 mg/mg Low 10 - 20 Remisol Chem CMPon 06-01-2023 Albumin [Mass/Vol] 4.1 g/dL Normal 3.3-5.0 [facility] Comment on above: Performed By: #### 2 [id number], [id number], [id number] ####[facility] [address] [place] [address] Albumin/Globulin (S) [Mass conc ratio] 1.5 Normal 1.1-2.2 [facility] Comment on above: Performed By: #### 2 558007, [id number], [id number] ####[facility] [address] [place] [address] ALP [Catalytic activity/Vol] 65 Int._Unit/L Normal 21-98 [facility] Comment on above: Performed By: #### 2 143392, [id number], [id number] ####[facility] [address] [place] [address] ALT No additional P-5'-P [Catalytic activity/Vol] 7 Int._Unit/L Normal 6-46 [facility] Comment on above: Performed By: #### 2 667296, 0243454, [id number] ####[facility] [address] [place] [address] Anion gap [Moles/Vol] 12 mmol/L Normal 6-16 [facility] Comment on above: Performed By: #### 2 774715, 0873487, [id number] ####[facility] [address] [place] [address] AST [Catalytic activity/Vol] 16 Int._Unit/L Normal 5-43 [facility] Comment on above: Performed By: #### 2 363832, 8173753, [id number] ####[facility] [address] [place] [address] Bilirubin [Mass/Vol] 0.6 mg/dL Normal 0.0-1.1 [facility] Comment on above: Performed By: #### 2 580721, 8352295, [id number] ####[facility] [address] [place] [address] Calcium [Mass/Vol] 9.0 mg/dL Normal 8.9-11.1 [facility] Comment on above: Performed By: #### 2 340075, 2425957, [id number] ####[facility] [address] [place] [address] Chloride [Moles/Vol] 100 mmol/L Low 101-111 [facility] Comment on above: Performed By: #### 2 034934, 4743273, [id number] ####[facility] [address] [place] [address] CO2 [Moles/Vol] 26 mmol/L Normal 21-31 [facility] Comment on above: Performed By: #### 2 840568, 6612275, [id number] ####[facility] [address] [place] [address] Creatinine [Mass/Vol] 0.7 mg/dL Normal 0.5-1.3 [facility] Comment on above: Performed By: #### 2 960043, 5599176, 41472878 ####[facility] [address] [place] [address] Globulin (S) [Mass/Vol] 2.7 g/dL Normal 1.4-4.0 [facility] Comment on above: Performed By: #### 2 299568, 1133180, 66127530 ####[facility] [address] [place] [address] Glucose [Mass/Vol] 94 mg/dL Normal 55-199 [facility] Comment on above: Performed By: #### 2 929157, 0400520, [id number] ####[facility] [address] [place] [address] Potassium [Moles/Vol] 3.3 mmol/L Low 3.5-5.3 [facility] Comment on above: Performed By: #### 2 506976, 7764581, [id number] ####[facility] [address] [place] [address] Protein [Mass/Vol] 6.8 g/dL Normal 6.0-7.8 [facility] Comment on above: Performed By: #### 2 432698, 6917874, 86390199 ####[facility] [address] [place] [address] Sodium [Moles/Vol] 135 mmol/L Normal 135-145 [facility] Comment on above: Performed By: #### 2 258597, 3963975, 04059708 ####[facility] [address] [place] [address] Urea nitrogen [Mass/Vol] 5 mg/dL Normal 5-21 [facility] Comment on above: Performed By: #### 2 925908, 5980798, 56029404 ####[facility] [address] [place] [address] Urea nitrogen/Creatinine [Mass ratio] 7 No Units Low 10-20 [facility] Comment on above: Performed By: #### 2 609736, 3733521, 59115155 ####[facility] [address] [place] [address] Consent for Treatmenton 05-10 Consent for Treatment [id number]#1.00TIFF Normal [facility] Gastroenterology Office/Clin ic Noteon 06-01-2023 Gastroenterology Office/Clinic Note Chief Complaint EGD results HPI Staff Patient is a 48 year old female here today to review EGD results. History of Present Illness Patient is a 48-year-old female who presents for follow-up from EGD completed 03/30/[address] Fuentes. Patient was previously evaluated by Dr. Fuentes 03/04/23 and note indicated patient with history of colitis, diarrhea, abdominal pain, loss of appetite and nausea. Note also indicated patient with family history of colon cancer?patient's maternal grandfather. Patient had previous colonoscopy at [facility] 07/2022 that revealed biopsy with no significant histopathologic changes, normal colonoscopy and is due for repeat in 5 years- 2027. Patient was ordered stool testing, celiac serology, stool testing for fecal pancreatic elastase. No stool testing or labs available to review during today's encounter. EGD completed 03/30/2023 revealed normal esophagus, normal gastric mucosa, normal duodenum, duodenal biopsy within normal limits. Presents with significant other today. Denies FH ulcerative colitis or crohn's. During today's visit, patient reports over the last 30 years, she has been experiencing generalized abdominal pain described as achy and has improved some. Is having nausea and diarrhea is occurring daily and at times occurs at same time. She reports losing 30 pounds in the last 4 months unintentionally. Is having loss of appetite over the last 5 months that has not improved. Is having 4-5 watery loose stools daily. uses imodium as needed for diarrhea- uses rarely. Over the last week, has been having difficulty pushing/straining to have a BM. Denies use of fiber supplementation. Denies black/bloody stools, fevers/chills, and denies having any other GI complaints. Review of Systems PHQ Score Initial Depression Screen Score: 0 SCORE ROS - Provider Constitutional: no fever, no chills. Skin: no Jaundice. ENMT: Denies dysphagia and heartburn. Respiratory: no shortness of breath. Cardiovascular: no chest pain. Gastrointestinal: yes nausea, no vomiting, yes diarrhea, no GI bleeding. Physical Exam Vitals & Measurements T: 36.1 ?C(Temporal Artery) HR: 69(Peripheral) BP: 133/82 HT: 60 in HT: 153 cm WT: 61.8 kg WT: 135.96 lb BMI: 26.4 General: Well developed, well nourished, in no acute distress Head: Normocephalic/atraumatic Lungs: Normal respiratory effort and clear to auscultation Cardio: Regular rate and rhythm, normal S1 and S2, no murmur, no rub Abdomen: Soft, non-distended, non-tender. Normoactive bowel sounds present in all 4 abdominal quadrants, bilaterally. Mental Status: Alert and oriented x3. Normal mood and affect Assessment/Plan 1. Abdominal pain (R10.9: Unspecified abdominal pain) Over the last 30 years, has been experiencing generalized abdominal pain described as achy that has improved some. Previous colonoscopy at [facility] 07/2022 revealed biopsy with no significant histopathologic changes, normal colonoscopy and is due for repeat in 5 years- 2027. EGD completed 03/30/2023 revealed normal esophagus, normal gastric mucosa, normal duodenum, duodenal biopsy within normal limits. Educated to complete previously ordered CBC/celiac testing ordered by Dr. Fuentes. Ordered CMP. Ordered CT abdomen/pelvis to evaluate for acute process. Ordered: Comprehensive Metabolic Panel CT Abdomen/Pelvis w/ Contrast 2. Nausea (R11.0: Nausea) Is having nausea and diarrhea is occurring daily and at times occurs at same time. EGD completed 03/30/2023 revealed normal esophagus, normal gastric mucosa, normal duodenum, duodenal biopsy within normal limits. Educated to complete previously ordered CBC/celiac testing ordered by Dr. Fuentes. Ordered CMP. Ordered CT abdomen/pelvis to evaluate for acute process. 3. Diarrhea (R19.7: Diarrhea, unspecified) Has 4-5 watery loose stools daily. Previous colonoscopy 07/2022- see HPI for details regarding. Educated to complete previously ordered CBC/celiac testing/stool testing ordered by Dr. Fuentes. Ordered CMP, TSH. Ordered CT abdomen/pelvis to evaluate for acute process. Educated regarding fiber supplementation daily and instructed regarding use. Ordered: Comprehensive Metabolic Panel CT Abdomen/Pelvis w/ Contrast Thyroid Stimulating Hormone 4. Loss of appetite (R63.0: Anorexia) Is having loss of appetite over the last 5 months that has not improved. Educated regarding Boost supplementation daily. EGD completed 03/30/2023 revealed normal esophagus, normal gastric mucosa, normal duodenum, duodenal biopsy within normal limits. Educated to complete previously ordered CBC/celiac testing ordered by Dr. Fuentes. Ordered CMP. Ordered CT abdomen/pelvis to evaluate for acute process. Ordered: Comprehensive Metabolic Panel CT Abdomen/Pelvis w/ Contrast 5. Unintentional weight loss (R63.4: Abnormal weight loss) Has reportedly lost 30 pounds in the last 4 months unintentionally. EGD completed 03/30/2023 revealed normal (more content not included)... Normal [facility] Comment on above: Result Comment: Elec tronically Signed By: Gino JAUREGUI, Chantel Weinstein\.br\Date and Time Signed: 06/01/23 11:30 EDT Patient Educationon 06-01-19 Patient Education Gastroenterology Abdominal Pain, Adult Pain in the abdomen (abdominal pain) can be caused by many things. Often, abdominal pain is not serious and it gets better with no treatment or by being treated at home. However, sometimes abdominal pain is serious. Your health care provider will ask questions about your medical history and do a physical exam to try to determine the cause of your abdominal pain. Follow these instructions at home: Medicines ? Take begg-tbo-ggndwzf and prescription medicines only as told by your health care provider. ? Do not take a laxative unless told by your health care provider. General instructions ? Watch your condition for any changes. ? Drink enough fluid to keep your urine pale yellow. ? Keep all follow-up visits as told by your health care provider. This is important. Contact a health care provider if: ? Your abdominal pain changes or gets worse. ? You are not hungry or you lose weight without trying. ? You are constipated or have diarrhea for more than 2?3 days. ? You have pain when you urinate or have a bowel movement. ? Your abdominal pain wakes you up at night. ? Your pain gets worse with meals, after eating, or with certain foods. ? You are vomiting and cannot keep anything down. ? You have a fever. ? You have blood in your urine. Get help right away if: ? Your pain does not go away as soon as your health care provider told you to expect. ? You cannot stop vomiting. ? Your pain is only in areas of the abdomen, such as the right side or the left lower portion of the abdomen. Pain on the right side could be caused by appendicitis. ? You have bloody or black stools, or stools that look like tar. ? You have severe pain, cramping, or bloating in your abdomen. ? You have signs of dehydration, such as: ? Dark urine, very little urine, or no urine. ? Cracked lips. ? Dry mouth. ? Sunken eyes. ? Sleepiness. ? Weakness. ? You have trouble breathing or chest pain. Summary ? Often, abdominal pain is not serious and it gets better with no treatment or by being treated at home. However, sometimes abdominal pain is serious. ? Watch your condition for any changes. ? Take kywo-nqe-isqqard and prescription medicines only as told by your health care provider. ? Contact a health care provider if your abdominal pain changes or gets worse. ? Get help right away if you have severe pain, cramping, or bloating in your abdomen. This information is not intended to replace advice given to you by your health care provider. Make sure you discuss any questions you have with your health care provider. Document Revised: 03/15/2020 Document Reviewed: 06/05/2019 [employer] Patient Education ? 2022 [employer] Normal [facility] TSHon 06-01-2023 TSH Qn 0.75 m[IU]/L Normal 0.34-5.60 [facility] Comment on above: Performed By: #### 2 [id number], [id number], [id number] ####[facility] [address] [place] [address] eGFRon 06-01-2023 eGFR 107 mL/min/1.73 m2 Normal >=59 [facility] Comment on above: Order Comment: Order added by Discern Expert. Performed By: #### 2 754322, [id number], [id number] ####[facility] [address] [place] [address] Provider Letteron 04-21-2023 Provider Letter (Inserted Image. Elisabet ble to display) April 21, 2023 YOLIE SUKHDEV [address] [place] [address] : 1975 Dear Yolie , We have been trying to reach you with no success. It is important that you return our call regarding scheduling a follow appointment with Dr Fuentes upon receiving this letter. Also, at the time of your call, please provide us with your current information. Thank you for your prompt attention to this matter. Sincerely, [facility] [phone] [facility] Operative Reporton Operative Report [id number]#2.00TIFF [facility] Outside Recordson 04-05-2023 Outside Records [id number]#1.00OTGTIF [facility] Physician Orderon 03-30-2023 Physician Order [id number]#1.00TIFF [facility] Ambulatory Visit Summaryon 0 03-04-2023 Ambulatory Visit Summary YOLIE TANG :1975 Visit Date:03/04/2023 Ambulatory Visit Instructions Your Diagnosis History of colitis Your Care Team Attending Physician - Alfredo LESLIE, Estelita Ford Primary Care Physician - VALERIO GASTON MD This Is Your Medications List loperamide (Imodium 2 mg oral capsule) Contact prescribing physician if questions or concerns hydrochlorothiazide levothyroxine (Synthroid) losartan Procedures Performed Colonoscopy (08/07/2022). Discharge Vitals Heart Rate (Peripheral) 78 Respiratory Rate 16 Blood Pressure 114/77 Height 153 cm Height 60 in Weight 61 kg Weight 134.2 lb BMI 26.06 What to do next You Need to Complete the Following Calprotectin, Fecal, Stool, Routine collect, 03/04/23, Order for future visit, Nurse collect, History of colitis, Not Required, Print Label By Order Location CBC w/ Auto Diff, Blood, Routine collect, 03/04/23, Order for future visit, Lab Collect, History of colitis, Not Required, Print Label By Order Location Celiac Disease Comprehensive, Blood, Routine collect, 03/04/23, Order for future visit, Lab Collect, History of colitis, Not Required, Print Label By Order Location Giardia lamblia, Direct Detection EIA, Stool, Routine collect, 03/04/23, Order for future visit, Nurse collect, History of colitis, Not Required, Print Label By Order Location Pancreatic Elastase, Fecal, Stool, Routine collect, 03/04/23, Order for future visit, Nurse collect, History of colitis, Not Required, Print Label By Order Location Medications What How Much When Instructions New loperamide (Imodium 2 mg oral capsule) 2 Capsules By Mouth Every 6 hours as needed for Diarrhea Refills: 1 Pickup at [facility]/pharmacy #[id number] Unchanged hydrochlorothiazide By Mouth Every day Contact prescribing physician if questions or concerns Unchanged levothyroxine (Synthroid) By Mouth Every day Contact prescribing physician if questions or concerns Unchanged losartan By Mouth Every day Contact prescribing physician if questions or concerns Pharmacy Information [facility]/pharmacy #[id number]: [address] [place], [place] [id number] [phone] Medications and Immunizations Administered Not Given influenza virus vaccine, inactivated, Patient Refuses Allergies No Known Medication Allergies Problems Ongoing - Any problem that you are currently receiving treatment for. History of colitis Patient Survey You may receive a survey via text or e-mail asking about your office visit. Please share your experience with us by completing your survey. We appreciate your feedback and thank you for choosing us for your care. Normal [facility] Consent for Procedure/Surger yon 03-04-2023 Consent for Procedure/Surgery [id number]#1.00TIFF Normal [facility] Gastroenterology Office/Clin ic Noteon 03-04-2023 Gastroenterology Office/Clinic Note Chief Complaint ref by artemio- hx of colits w/ c/o diarrhea and abdominal pain HPI Staff Patient is a 47 year old female who was referred by Artemio for hx of colitis, c/o diarrhea, abdominal pain, loss of appetite and nausea. Fhx of colon ca (Maternal Grandparent), denies Fhx of CD, UC Patient was originally seeing [facility], was not happy with them and asked for referral to [facility]. Did not find any previous stool testing reports. Abdominal pain: When did you first have this pain: A month ago Quality (sharp, dull): sharp, also achy Constant or comes or go: comes and goes location and radiation: around the belly button Relation to food: no Improving or worsening factors factors: knees to chest Diarrhea: How many BM a day (normal <4): over 12 When did it start: years Constant? Or alternate with normal BM or constipation: constipation for 2 days then back to diarrhea Associated symptoms: abdominal pain Colonoscopy w/Dr. Adair @ [facility] 08/10/22: Findings: Random biopsies were done using biopsy forceps to assess for microscopic colitis. Terminal ileum: normal Cecum: normal Ascending colon: normal Hepatic flexure: normal Transverse colon: normal Splenic flexure: normal Descending colon: normal Sigmoid colon: normal Rectum: normal Retroflexed views: Rectum did show internal hemorrhoids Recommendations: -Next colonoscopy in 10 years Pathology: Colon, random, biopsy: - Colonic mucosa, no significant histopathologic changes. CMP/TSH/lipid 12/18/22 @ [place]: Sodium: 131 (L) Aspartate Amino Transferase: 13 (L) TSH: 0.031 (L) History of Present Illness was diagnosed with collagenous colitis years ago in [facility], repeat Colonoscopy with gabriel Moore and Bx Had EGD years ago 2011 per her report Budesonide in the past, was on it for 8 years, was stopped after knee surgery, was in remission for 2 years per her report Starting April 2022, she started having watery diarrhea, some nausea no vomiting Review of Systems PHQ Score Initial Depression Screen Score: 0 SCORE Physical Exam Vitals & Measurements HR: 78(Peripheral) RR: 16 BP: 114/77 HT: 60 in HT: 153 cm WT: 61 kg WT: 134.2 lb BMI: 26.06 General: in Nad Abdomen: Soft, NTND Assessment/Plan 1. History of colitis (Z87.19: Personal history of other diseases of the digestive system) She has a history of microscopic colitis per her report about 12 years ago treated with budesonide for 8 years, and then stopped and she was in remission she said for 2 years and then relapsed into watery diarrhea, about 12 times a day, severe postprandial symptoms as well, has some nausea, no vomiting Had a recent colonoscopy by Dr. Cates with negative exam and biopsies Her differential includes celiac disease, microscopic colitis? Could be patchy disease, chronic infection such as Giardia, IBS diarrhea, other rare etiologies are considered, no history of cholecystectomy Will start with blood testing and stool testing and EGD, Imodium as needed for now and follow-up after the EGD Ordered: Calprotectin, Fecal CBC w/ Auto Diff Celiac Disease Comprehensive EGD Endoscopy (Hospital Procedure) EGD Endoscopy (Hospital Procedure) Giardia lamblia, Direct Detection EIA Pancreatic Elastase, Fecal Orders: loperamide, 4 mg = 2 cap(s), Oral, q6hr, PRN Diarrhea, # 90 cap(s), Refills(s) 1, Pharmacy: [facility]/pharmacy #[id number], 153, cm, 03/04/23 12:05:00 EST, Height/Length Dosing, 61, kg, 03/04/23 12:05:00 EST, Weight Dosing Follow-up No qualifying data available Problem List/Past Medical History Ongoing History of colitis Historical No qualifying data Procedure/Surgical History Colonoscopy (08/07/2022). Medications hydrochlorothiazide, Oral, Daily losartan, Oral, Daily Synthroid, Oral, Daily Allergies No Known Medication Allergies Social History Tobacco Former smoker, quit more than 30 days ago Tobacco Use:. Cigarettes, 03/04/2023 Family History Primary malignant neoplasm of colon: Grandparent. Immunizations Vaccine Date Status Comments influenza virus vaccine, inactivated - Not Given Patient Refuses SARS-CoV-2 (COVID-19) mRNA-1273 vaccine 08/28/2020 Recorded SARS-CoV-2 (COVID-19) mRNA-1273 vaccine 07/31/2020 Recorded Normal [facility] Comment on above: Result Comment: Elec tronically Signed By: Alfredo LESLIE, Estelita Ford\.br\Date and Time Signed: 03/04/23 12:40 EST Physician Referralon 023 Physician Referral [phone] [id number] Normal [facility] HCG,Urineon 08-07-2022 Beta HCG ( test) Ql (U) Negative Normal [facility] Comment on above: Result Comment: PERF ORMED BY: [address] [address] PATHOLOGIST LOAN FUNDER CORY COBOS M.D. Performed By: #### U [facility] #### [address] [place] [address] [facility] 08-07-2022 L ------ Specimen: [id number] Received: 08/07/22 Status: FRANK Guerra Num: [id number] Spec Type: Surgical Subm Dr: Deandra Adair MD Tissues: A Colon Biopsy (RANDOM COLON BX) Procedures: Mario ANDERSON/Rashad L4 Age/ Patient Sex Location Account Attending Physician Yolie Tang 47/F [id number] Deandra Adair MD SPEC NUM: [id number] RECD: 08/07/22 STATUS: FRANK GUERRA NUM: [id number] SILVA: 08/07/22 DR: Deandra Adair MD ENTERED: 08/07/22 [facility] DR: SPEC TYPE: Surgical DEPT: S ORDERED: HE/2, Gross/Micro L4 ORDERED: HE/2, Gross/Micro L4 Pathological Diagnosis Colon, random, biopsy: - Colonic mucosa, no significant histopathologic changes. Clinical Information History of colitis, diarrhea, rule out microscopic colitis Gross Description Received in formalin labeled with the patient's name, number and random colon biopsy is one fragment of soft robins tissue measuring 1.1 x 0.2 x 0.1 cm. Entirely submitted in one cassette labeled A1. Microscopic Description Two H E slides reviewed. The microscopic examination confirms the diagnosis. CPT Codes 61360 Specimen: [id number] Received: 08/07/22 Status: FRANK Guerra Num: [id number] Spec Type: Surgical Subm Dr: Deandra Adair MD Tissues: A Colon Biopsy (RANDOM COLON BX) Procedures: HE/2, Gross/Micro L4 Patient: Yolie Tang [id number] (Continued) Signed (signature on file) Petey Wheeler MD 08/10/22 0939 [facility] CBC and Differentialon 02-19 Abs Baso 0.08 k/uL Normal <0.11 [facility] Comment on above: Performed By: #### C BCDIF, CMP, LIPB, TSH, FT4, UA, VITD ####[facility] [address] [place], [place] [phone] Abs [place] 0.71 k/uL Normal <0.87 [facility] Comment on above: Performed By: #### C BCDIF, CMP, LIPB, TSH, FT4, UA, VITD ####[facility] [address] [place], [place] [phone] Abs Neut 7.90 k/uL High 1.45-7.50 [facility] Comment on above: Performed By: #### C BCDIF, CMP, LIPB, TSH, FT4, UA, VITD ####[facility] [address] [place], [place] [phone] Absolute nRBC <0.01 Normal <0.01 [facility] Comment on above: Performed By: #### C BCDIF, CMP, LIPB, TSH, FT4, UA, VITD ####[place] [address] [address] [phone] Basophils/100 WBC Auto (Bld) 0.7 % Normal [facility] Comment on above: Performed By: #### C BCDIF, CMP, LIPB, TSH, FT4, UA, VITD ####[place] [address] [address] [place] [phone] DTYPE ADIFF Normal [facility] Comment on above: Performed By: #### C BCDIF, CMP, LIPB, TSH, FT4, UA, VITD ####[place] [phone] Eosinophils Auto #/vol (Bld) 10*3/uL Normal <0.46 [facility] Comment on above: Performed By: #### C BCDIF, CMP, LIPB, TSH, FT4, UA, VITD ####[place] [address] [address] [place] [phone] Eosinophils/100 WBC Auto (Bld) 0.2 % Normal [facility] Comment on above: Performed By: #### C BCDIF, CMP, LIPB, TSH, FT4, UA, VITD ####[place] [address] [address] [place] [phone] Erythrocyte distribution width Auto Ratio (RBC) 12.9 % Normal 11.5-15.0 [facility] Comment on above: Performed By: #### C BCDIF, CMP, LIPB, TSH, FT4, UA, VITD ####[place] [address] [address] [phone] Hematocrit Auto Volume Fraction (Bld) 43.8 % Normal 36.0-46.0 [facility] Comment on above: Performed By: #### C BCDIF, CMP, LIPB, TSH, FT4, UA, VITD ####[place] [phone] Hemoglobin mass conc (Bld) 14.7 g/dL Normal 11.5-15.5 [facility] Comment on above: Performed By: #### C BCDIF, CMP, LIPB, TSH, FT4, UA, VITD ####[place] [phone] Lymphocytes Auto #/vol (Bld) 2.16 10*3/uL Normal 1.00-4.00 [facility] Comment on above: Performed By: #### C BCDIF, CMP, LIPB, TSH, FT4, UA, VITD ####[place] [phone] Lymphocytes/100 WBC Auto (Bld) 19.9 % Normal [facility] Comment on above: Performed By: #### C BCDIF, CMP, LIPB, TSH, FT4, UA, VITD ####[place] [phone] MCH Auto Entitic mass (RBC) 32.8 pG Normal 26.0-34.0 [facility] Comment on above: Performed By: #### C BCDIF, CMP, LIPB, TSH, FT4, UA, VITD ####[address] [place], [place] [phone] MCHC Auto mass conc (RBC) 33.6 g/dL Normal 30.5-36.0 [facility] Comment on above: Performed By: #### C BCDIF, CMP, LIPB, TSH, FT4, UA, VITD ####[place] [phone] MCV Auto Entitic volume (RBC) 97.8 fL Normal 80.0-100.0 [facility] Comment on above: Performed By: #### C BCDIF, CMP, LIPB, TSH, FT4, UA, VITD ####[place] [id number], [place] [phone] Monocytes/100 WBC Auto (Bld) 6.5 % Normal [facility] Comment on above: Performed By: #### C BCDIF, CMP, LIPB, TSH, FT4, UA, VITD ####[place] [address] [address], [place] [phone] Neutrophils/100 WBC Auto (Bld) 72.7 % Normal [facility] Comment on above: Performed By: #### C BCDIF, CMP, LIPB, TSH, FT4, UA, VITD ####[place] [address] [address] [place] [phone] NRBCs 0.0 /100 WBC Normal 0 [facility] Comment on above: Performed By: #### C BCDIF, CMP, LIPB, TSH, FT4, UA, VITD ####[place] [address] [address] [place], [place] [phone] Platelet mean volume Auto Entitic volume (Bld) 9.9 fL Normal 9.0-12.7 [facility] Comment on above: Performed By: #### C BCDIF, CMP, LIPB, TSH, FT4, UA, VITD ####[place] [address] [address] [place], [place] [phone] Platelets Auto #/vol (Bld) 362 10*3/uL Normal 150-400 [facility] Comment on above: Performed By: #### C BCDIF, CMP, LIPB, TSH, FT4, UA, VITD ####[place] [address] [address], [place] [phone] RBC Auto #/vol (Bld) 4.48 10*6/uL Normal 3.90-5.20 [facility] Comment on above: Performed By: #### C BCDIF, CMP, LIPB, TSH, FT4, UA, VITD ####[facility] [address] [place], [place] [phone] WBC Auto #/vol (Bld) 10.87 10*3/uL Normal 3.70-11.00 [facility] Comment on above: Performed By: #### C BCDIF, CMP, LIPB, TSH, FT4, UA, VITD ####[address] [phone] Comp Metabolic Panelon 02-19 Albumin mass conc 4.5 g/dL Normal 3.9-4.9 [facility] Comment on above: Performed By: #### C BCDIF, CMP, LIPB, TSH, FT4, UA, VITD ####[facility] [id number] [place], [place] [phone] ALP enzyme act/vol 70 U/L Normal 34-123 [facility] Comment on above: Performed By: #### C BCDIF, CMP, LIPB, TSH, FT4, UA, VITD ####[facility] [address] [place], [place] [phone] ALT enzyme act/vol 18 U/L Normal 7-38 [facility] Comment on above: Performed By: #### C BCDIF, CMP, LIPB, TSH, FT4, UA, VITD ####[facility] [address] [place], [place] [phone] Anion gap 3 molar conc 13 mmol/L Normal 9-18 [facility] Comment on above: Performed By: #### C BCDIF, CMP, LIPB, TSH, FT4, UA, VITD ####[facility] [address] [place] [phone] AST enzyme act/vol 24 U/L Normal 13-35 [facility] Comment on above: Performed By: #### C BCDIF, CMP, LIPB, TSH, FT4, UA, VITD ####[place] [phone] Bilirubin Ql (U) 0.5 mg/dL Normal 0.2-1.3 [facility] Comment on above: Performed By: #### C BCDIF, CMP, LIPB, TSH, FT4, UA, VITD ####[place] [phone] Calcium mass conc 9.8 mg/dL Normal 8.5-10.2 [facility] Comment on above: Performed By: #### C BCDIF, CMP, LIPB, TSH, FT4, UA, VITD ####[place] [phone] Chloride molar conc 96 mmol/L Low 97-105 [facility] Comment on above: Performed By: #### C BCDIF, CMP, LIPB, TSH, FT4, UA, VITD ####[place] [phone] CO2 molar conc 30 mmol/L Normal 22-30 [facility] Comment on above: Performed By: #### C BCDIF, CMP, LIPB, TSH, FT4, UA, VITD ####[place] [phone] Creatinine mass conc 0.92 mg/dL Normal 0.58-0.96 [facility] Comment on above: Performed By: #### C BCDIF, CMP, LIPB, TSH, FT4, UA, VITD ####[place] [phone] eGFR- Amer. >60 Normal [facility] Comment on above: Performed By: #### C BCDIF, CMP, LIPB, TSH, FT4, UA, VITD ####[place] [address] [address] [phone] GFR/1.73 sq M predicted among non-blacks MDRD vol rate/area (S/P/Bld) mL/min/{1.73_m2} Normal [facility] Comment on above: Performed By: #### C BCDIF, CMP, LIPB, TSH, FT4, UA, VITD ####[place] [phone] Glucose mass conc 92 mg/dL Normal 74-99 [facility] Comment on above: Performed By: #### C BCDIF, CMP, LIPB, TSH, FT4, UA, VITD ####[place] [phone] Potassium molar conc 4.0 mmol/L Normal 3.7-5.1 [facility] Comment on above: Performed By: #### C BCDIF, CMP, LIPB, TSH, FT4, UA, VITD ####[place] [phone] Protein mass conc 7.7 g/dL Normal 6.3-8.0 [facility] Comment on above: Performed By: #### C BCDIF, CMP, LIPB, TSH, FT4, UA, VITD ####[place] [phone] Sodium molar conc 139 mmol/L Normal 136-144 [facility] Comment on above: Performed By: #### C BCDIF, CMP, LIPB, TSH, FT4, UA, VITD ####[address], [place] [phone] Urea nitrogen mass conc 10 mg/dL Normal 7-21 [facility] Comment on above: Performed By: #### C BCDIF, CMP, LIPB, TSH, FT4, UA, VITD ####[address] [phone] Free T4on 02-19-2018 T4 free mass conc 1.7 ng/dL Normal 0.9-1.7 [facility] Comment on above: Performed By: #### C BCDIF, CMP, LIPB, TSH, FT4, UA, VITD ####[address] [phone] Lipid Panel, Basicon 019 Cholesterol in HDL mass conc 96 mg/dL Normal >39 [facility] Comment on above: Performed By: #### C BCDIF, CMP, LIPB, TSH, FT4, UA, VITD ####[place] [phone] Cholesterol in LDL mass conc 81 mg/dL Normal <100 [facility] Comment on above: Performed By: #### C BCDIF, CMP, LIPB, TSH, FT4, UA, VITD ####[address] [phone] Cholesterol in VLDL mass conc 26 mg/dL Normal <30 [facility] Comment on above: Performed By: #### C BCDIF, CMP, LIPB, TSH, FT4, UA, VITD ####[address], [place] [phone] Cholesterol mass conc 203 mg/dL High <200 [facility] Comment on above: Performed By: #### C BCDIF, CMP, LIPB, TSH, FT4, UA, VITD ####[facility] LaboratoriesRouChristina [place] [phone] Cholesterol non HDL mass conc 107 mg/dL Normal <130 [facility] Comment on above: Performed By: #### C BCDIF, CMP, LIPB, TSH, FT4, UA, VITD ####[place] [phone] LDL:HDL Ratio 0.84 Normal <2.54 [facility] Comment on above: Performed By: #### C BCDIF, CMP, LIPB, TSH, FT4, UA, VITD ####[place] [phone] TC:HDL Ratio 2.11 Normal <5.10 [facility] Comment on above: Performed By: #### C BCDIF, CMP, LIPB, TSH, FT4, UA, VITD ####[place] [phone] Triglyceride mass conc 129 mg/dL Normal <150 [facility] Comment on above: Performed By: #### C BCDIF, CMP, LIPB, TSH, FT4, UA, VITD ####[place] [phone] TSHon 02-19-2018 Thyrotropin Qn 2.020 uU/mL Normal 0.400-5.500 [facility] Comment on above: Performed By: #### C BCDIF, CMP, LIPB, TSH, FT4, UA, VITD ####[place] [phone] Urinalysison 02-19-2018 Bilirubin, Urine NEGAT Normal Negative [facility] Comment on above: Performed By: #### C BCDIF, CMP, LIPB, TSH, FT4, UA, VITD ####[place] [phone] Clarity CLDY Abnormal Clear [facility] Comment on above: Performed By: #### C BCDIF, CMP, LIPB, TSH, FT4, UA, VITD ####[facility] [address] [place], [place] [address]d AvDenise [place] [phone] Color YEL Normal Yellow [facility] Comment on above: Performed By: #### C BCDIF, CMP, LIPB, TSH, FT4, UA, VITD ####[place] [phone] Comments MICDUN Normal [facility] Comment on above: Performed By: #### C BCDIF, CMP, LIPB, TSH, FT4, UA, VITD ####[place] [phone] Epithelial Cells Normal [facility] Comment on above: Result Comment: Few SquamousEpithelialCells Performed By: #### C BCDIF, CMP, LIPB, TSH, FT4, UA, VITD ####[place] [phone] Glucose Ql (U) NEGAT Normal Negative [facility] Comment on above: Performed By: #### C BCDIF, CMP, LIPB, TSH, FT4, UA, VITD ####[facility] [id number] [place], [place] [phone] Hemoglobin/Blood,Ur NEGAT Normal Negative [facility] Comment on above: Performed By: #### C BCDIF, CMP, LIPB, TSH, FT4, UA, VITD ####[facility] [address] [place], [place] [address]d [place] [phone] INR Coag RelTime (Bld) 3 {INR} Normal 0-3 [facility] Comment on above: Performed By: #### C BCDIF, CMP, LIPB, TSH, FT4, UA, VITD ####[place] [phone] Ketones Ql (U) NEGAT Normal Negative [facility] Comment on above: Performed By: #### C BCDIF, CMP, LIPB, TSH, FT4, UA, VITD ####[place] [phone] Leukest TR Abnormal Negative [facility] Comment on above: Performed By: #### C BCDIF, CMP, LIPB, TSH, FT4, UA, VITD ####[place] [phone] Nitrites NEGAT Normal Negative [facility] Comment on above: Performed By: #### C BCDIF, CMP, LIPB, TSH, FT4, UA, VITD ####[place] [phone] pH 7.0 Normal 4.5-8.0 [facility] Comment on above: Performed By: #### C BCDIF, CMP, LIPB, TSH, FT4, UA, VITD ####[place] [phone] Protein, Urine 30 mg/dL Abnormal Negative [facility] Comment on above: Performed By: #### C BCDIF, CMP, LIPB, TSH, FT4, UA, VITD ####[place] [phone] Specific [place], Ur 1.011 Normal 1.005-1.030 [facility] Comment on above: Performed By: #### C BCDIF, CMP, LIPB, TSH, FT4, UA, VITD ####[place] [phone] Urine Edward Comment NAPP Normal [facility] Comment on above: Performed By: #### C BCDIF, CMP, LIPB, TSH, FT4, UA, VITD ####[facility] [address], [place] [phone] Urobilinogen NL Normal Normal [facility] Comment on above: Performed By: #### C BCDIF, CMP, LIPB, TSH, FT4, UA, VITD ####[facility] [id number] [place], [place] [phone] WBC R05 Normal 0-5 [facility] Comment on above: Performed By: #### C BCDIF, CMP, LIPB, TSH, FT4, UA, VITD ####[facility] [address] [place], [place] [phone] Vitamin D 25 Hydroxyon 02-19 Vitamin D 25 Hydroxy 42.4 ng/mL Normal 31.0-80.0 [facility] Comment on above: Performed By: #### C BCDIF, CMP, LIPB, TSH, FT4, UA, VITD ####[facility] [address] [place], [place] [phone] Lipid Panel, Basicon 019 Fasting Time 12 hrs Normal [facility] Comment on above: Performed By: #### C BCDIF, CMP, LIPB, TSH, FT4, UA, VITD ####[facility] [address] [place], [place] [phone] XR CHEST 2V FRONTAL/LATon XR CHEST 2V FRONTAL/LAT * * *Final Report* * *DATE OF EXAM: Feb 18 2018 3:59PM NIX [id number] - XR CHEST 2V FRONTAL/LAT / REASON: BRONCHITIS * * * * Physician Interpretation * * * *RESULT: EXAMINATION: CHEST RADIOGRAPH (2 VIEW FRONTAL and LATERAL)CLINICAL HISTORY: CoughMQ: XC2_5Comparison: NoneRESULT:Lines, tubes, and devices: None.Lungs and pleura: No consolidation. No lung mass. No pleural effusion.Cardiomediastinal silhouette: Normal cardiomediastinal silhouette.Other: There is mild degenerative change involving the thoracic spine without evidence of fracture.IMPRESSION:No acute radiographic abnormality.Transcribe Date/Time: Feb 18 2018 4:05PDictated by: Prashant CHEUNG examination was interpreted and the report reviewed and electronically signed by: BARRIE BENTON DO on Feb 18 2018 4:07PM ESTThank you for allowing us to participate in the care of your patient.Should there be any questions regarding this interpretation, please call [phone].If you are unable to reach us at the number above,please feel free to contact [facility] at [phone] [email or web address] Normal [facility] CBC With Platelet and Differ entialon 11-20-2017 Abs Imm Granulocytes 0.05 E9/L Normal Basophils Auto #/vol (Bld) 0.05 E9/L Normal 0.00-0.20 Basophils/100 WBC Auto (Bld) 0.5 % Normal 0.0-2.0 Eosinophils Auto #/vol (Bld) 0.04 E9/L Low 0.05-0.50 Eosinophils/100 WBC Auto (Bld) 0.4 % Normal 0.0-6.0 Erythrocyte distribution width Auto Ratio (RBC) 12.9 fL Normal 11.5-15.0 Hematocrit Auto Volume Fraction (Bld) 40.9 % Normal 34.0-48.0 Hemoglobin mass conc (Bld) 13.8 g/dL Normal 11.5-15.5 Imm Granulocytes 0.5 % Normal 0.0-5.0 Lymphocytes Auto #/vol (Bld) 1.17 E9/L Low 1.50-4.00 Lymphocytes/100 WBC Auto (Bld) 11.5 % Low 20.0-42.0 MCH Auto Entitic mass (RBC) 32.8 pg Normal 26.0-35.0 MCHC Auto mass conc (RBC) 33.7 % Normal 32.0-34.5 MCV Auto Entitic volume (RBC) 97.1 fL Normal 80.0-99.9 Monocytes Auto #/vol (Bld) 0.62 E9/L Normal 0.10-0.95 Monocytes/100 WBC Auto (Bld) 6.1 % Normal 2.0-12.0 Neutrophils Auto #/vol (Bld) 8.27 E9/L High 1.80-7.30 Neutrophils/100 WBC Auto (Bld) 81.0 % High 43.0-80.0 Platelet mean volume Auto Entitic volume (Bld) 9.7 fL Normal 7.0-12.0 Platelets Auto #/vol (Bld) 274 E9/L Normal 130-450 RBC Auto #/vol (Bld) 4.21 E12/L Normal 3.50-5.50 WBC Auto #/vol (Bld) 10.2 E9/L Normal 4.5-11.5 Comprehensive Metabolic Pane jg 11-20-2017 Albumin mass conc 4.3 g/dL Normal 3.5-5.2 ALP enzyme act/vol 66 U/L Normal 35-104 ALT enzyme act/vol 11 U/L Normal 0-32 Anion gap 3 molar conc 13 mmol/L Normal 7-16 AST enzyme act/vol 17 U/L Normal 0-31 Bilirubin mass conc 0.4 mg/dL Normal 0.0-1.2 Calcium mass conc 9.2 mg/dL Normal 8.6-10.2 Chloride molar conc 95 mmol/L Low 98-107 CO2 molar conc 29 mmol/L Normal 22-29 Creatinine mass conc 0.8 mg/dL Normal 0.5-1.0 GFR/1.73 sq M predicted among blacks MDRD vol rate/area (S/P/Bld) mL/min/{1.73_m2} Normal GFR/1.73 sq M predicted among non-blacks MDRD vol rate/area (S/P/Bld) mL/min/{1.73_m2} Normal >=60 Comment on above: Result Comment: Snap Attacher avelino Kidney Disease: less than 60 ml/min/1.73 sq.m. Kidney Failure: less than 15 ml/min/1.73 sq.m.Results valid for patients 18 years and older. Glucose mass conc 100 mg/dL Normal 74-109 Potassium molar conc 3.8 mmol/L Normal 3.5-5.0 Protein mass conc 7.0 g/dL Normal 6.4-8.3 Sodium molar conc 137 mmol/L Normal 132-146 Urea nitrogen mass conc 8 mg/dL Normal 6-20 ED Noteon 11-20-2017 HIM IP Note OR Drilling Foreman Normal ED Provider Noteon 8 HIM IP Note OR Drilling Foreman Normal Lactic Acidon 11-20-2017 Lactate molar conc 2.3 mmol/L High 0.5-2.2 Lipaseon 11-20-2017 Lipase enzyme act/vol 20 U/L Normal 13-60 Vital Signs Date Time Vital Sign Value Performing Clinician Facility 11-17-2023 12:15-0400 Blood Pressure Location Angelina Siddiqui [facility] 11-17-2023 12:15-0400 Diastolic blood pressure 80 mm[Hg] Angelina Siddiqui [facility] 11-17-2023 12:15-0400 Heart rate 71 /min Angelina Siddiqui [facility] 11-17-2023 12:15-0400 Respiratory rate 16 /min Angelina Siddiqui [facility] 11-17-2023 12:15-0400 Systolic blood pressure 136 mm[Hg] Angelina Siddiqui [facility] 08-17-2023 09:40-0400 Diastolic blood pressure 82 mm[Hg] Mohamad Mouchli [facility] 08-17-2023 09:40-0400 Mean blood pressure 102 mm[Hg] Mohamad Mouchli [facility] 08-17-2023 09:40-0400 Systolic blood pressure 142 mm[Hg] Mohamad Mouchli [facility] 08-17-2023 09:35-0400 Blood Pressure Location Mohamad Mouchli [facility] 08-17-2023 09:35-0400 Diastolic blood pressure 57 mm[Hg] Mohamad Mouchli [facility] 08-17-2023 09:35-0400 Heart rate 57 /min Mohamad Mouchli [facility] 08-17-2023 09:35-0400 Respiratory rate 18 /min Mohamad Mouchli [facility] 08-17-2023 09:35-0400 SaO2% (BldA) [Mass fraction] 100 % Mohamad Mouchli [facility] 08-17-2023 09:35-0400 Systolic blood pressure 163 mm[Hg] Mohamad Dhavaluchli [facility] 07-02-2023 08:59-0400 Blood Pressure Location Chantel Christian [facility] 07-02-2023 08:59-0400 Body temperature 96.98 [degF] Chantel Christian [facility] 07-02-2023 08:59-0400 Diastolic blood pressure 81 mm[Hg] Chantel Gino [facility] 07-02-2023 08:59-0400 Heart rate 67 /min Chantel Gino [facility] 07-02-2023 08:59-0400 Systolic blood pressure 125 mm[Hg] Chantel Gino [facility] 06-01-2023 10:43-0400 Blood Pressure Location Chantel Gino [facility] 06-01-2023 10:43-0400 Body temperature 96.98 [degF] Chantel Gino [facility] 06-01-2023 10:43-0400 Diastolic blood pressure 82 mm[Hg] Chantel Gino [facility] 06-01-2023 10:43-0400 Heart rate 69 /min Chantelmaribel ArcosGino [facility] 06-01-2023 10:43-0400 Systolic blood pressure 133 mm[Hg] Chantel Gino [facility] 03-04-2023 12:03-0500 Blood Pressure Location Capone Sarmini [facility] 03-04-2023 12:03-0500 Diastolic blood pressure 77 mm[Hg] Capone Sarmini [facility] 03-04-2023 12:03-0500 Heart rate 78 /min Capone Sarmini [facility] 03-04-2023 12:03-0500 Respiratory rate 16 /min Capone Sarmini [facility] 03-04-2023 12:03-0500 Systolic blood pressure 114 mm[Hg] Estelita Fuentes [facility] 07-29-2022 14:00-0400 Body height 157.48 cm Imad Asaad [facility] Other 07-29-2022 14:00-0400 Body mass index (BMI) [Ratio] 28.35 kg/m2 Imad Asaad Other [facility] Other 07-29-2022 14:00-0400 Body weight 70.31 kg Imad Asaad Other [facility] Other 07-29-2022 14:00-0400 Diastolic blood pressure 93 mm[Hg] Imad Asaad Other [facility] Other 07-29-2022 14:00-0400 Systolic blood pressure 155 mm[Hg] Imad Asaad Other [facility] Other Encounters Encounter Date Encounter Type Care Provider Facility Start: 02-16-2024 ambulatory [facility] Start: 12-10-2023 End: 12-10-2023 ambulatory Valerio Gaston Facility:[facility] Start: 12-10-2023 End: 12-10-2023 ambulatory Valerio aGston Facility:[facility] Start: 12-10-2023 End: 12-10-2023 ambulatory Valerio Gaston Facility:[facility] Start: 11-17-2023 End: 11-17-2023 ambulatory Angelina Siddiqui [facility] Start: 11-17-2023 End: 11-17-2023 Patient encounter procedure Angelina Siddiqui [facility] Start: 09-13-2023 End: 09-13-2023 ambulatory SATURNINO CAMARA Not Available Start: 08-17-2023 ambulatory Angelina Ramires lity:Liz Start: 08-17-2023 End: 08-17-2023 Patient encounter procedure Angelina Siddiqui [facility] Start: 08-13-2023 End: 08-13-2023 ambulatory Valerio Weinstein Artemio Facility:[facility] Start: 07-13-2023 End: 07-31-2023 Pre-admission assessment Chantel Christian [facility] Start: 07-02-2023 End: 07-02-2023 ambulatory Chantel Christian Facility:[facility] Start: 07-02-2023 End: 07-02-2023 Patient encounter procedure Chantel Christian [facility] Start: 06-28-2023 End: 06-28-2023 ambulatory Capoen Talal Sarmini Facility:[facility] Start: 06-28-2023 End: 06-28-2023 Lab Drop off Capone Talal Sarmini [facility] Start: 06-28-2023 End: 06-28-2023 ambulatory Chantel Christian Facility:[facility] Start: 06-28-2023 End: 06-28-2023 Patient encounter procedure Chantel Christian [facility] Start: 06-01-2023 End: 06-01-2023 ambulatory Chantel Christian Facility:[facility] Start: 06-01-2023 End: 06-01-2023 Patient encounter procedure Chantel Christian [facility] Start: 03-30-2023 End: 03-30-2023 Lab Drop off Capone Talal Sarmini [facility] Start: 03-30-2023 End: 03-30-2023 ambulatory Capone Talal Sarmini Facility:[facility] Start: 03-30-2023 End: 03-30-2023 ambulatory Capone Talal Sarmini Facility::[id number] Start: 03-04-2023 End: 03-04-2023 ambulatory Capone Talal Sarmini Facility:[facility] Start: 03-04-2023 End: 03-04-2023 Patient encounter procedure Capone Talal Sarmini [facility] Start: 01-07-2023 ambulatory Capone Sarmini Facili ty:[facility] Start: 08-07-2022 End: 08-07-2022 ambulatory Imad Asaad Facility:[facility] Start: 07-29-2022 End: 07-29-2022 ambulatory Imad Asaad Other [facility] Start: 07-29-2022 Office outpatient visit 25 minutes Imad Asaad [facility] Start: 02-18-2018 End: 02-18-2018 Patient encounter procedure MERLY MEJIA SANA [facility] Start: 11-20-2017 End: 11-20-2017 Emergency department patient visit MERLY HOOD Procedures Date Procedure Procedure Detail Performing Clinician Start: 03-30-2023 Esophagogastroduodenoscopic electrohydraulic lithotripsy of bezoar in stomach Chantel Christian Start: 08-07-2022 Colonoscopy Capone Sarmini Start: 11-20-2017 Assay of lipase MERLY HOOD Start: 11-20-2017 Blood count complete auto&auto difrntl wbc MERLY HOOD Start: 11-20-2017 Comprehensive metabolic panel MERLY MCLAUGHLIN Start: 11-20-2017 LACTIC ACID, PLASMA MERLY HOOD Start: 11-20-2017 POC UR-QUAL MERLY HOOD Immunizations Immunization Date Immunization Notes Care Provider Fa cility 04-21-2023 tetanus and diphther ia toxoids, adsorbed, preservative free, for adult use (2 Lf of tetanus toxoid and 2 Lf of diphtheria toxoid) Mohamashivani Mouchli [facility] 08-28-2020 SARS-CoV-2 (COVID-19 ) mRNA-1273 vaccine Capone Sarmini [facility] 07-31-2020 SARS-CoV-2 (COVID-19 ) mRNA-1273 vaccine Capone Sarmini [facility] 12-28-2012 influenza virus vaccine, unspecified formulation JustFabd Mouchli [facility] NEGATED: Highlighted row has not occurred!11-17-2023 influenza virus vaccine, unspecified formulation Just[employer] Mouchli [facility] NEGATED: Highlighted row has not occurred!03-04-2023 influenza virus vaccine, unspecified formulation Capone Sarmini [facility] Payers Date Payer Category Payer Self-pay 2022 Medicaid [id number] 2017 Unknown [id number] 2005 Medicare [id number] 1976 Unknown [id number] 2.16. [id number] 1976 Unknown [id number] 2.16.8 40.1.708931.3.579.2. 1976 Unknown [id number] 2.16.8 40.1.652524.3.579.2 1976 Unknown [id number] 2.16.8 40.1.394785.3.579.2 1976 Unknown [id number] 2.16.8 40.1.681747.3.579.2 1976 Unknown [id number] 2.16.8 40.1.797356.3.579.2 1976 Unknown [id number] 2.16.8 40.1.123095.3.579.2 1976 Unknown [id number] 2.16.8 40.1.769431.3.579.2 1976 Unknown [id number] 2.16.8 40.1.130991.3.579.2 1976 Unknown [id number] 2.16.8 40.1.721823.3.579.2 1976 Unknown [id number] 2.16.84 0.1.264477.3.579.2.1258 1976 Unknown [id number] 2.16.8 40.1.529449.3.579.2 1976 Unknown [id number] 2.16.8 40.1.353459.3.579.2 1976 Unknown [id number] 2.16.8 40.1.431714.3.579.2 1976 Unknown [id number] 2.16.8 40.1.676164.3.579.2 1976 Unknown [id number] 2.16.8 40.1.423578.3.579.2 1976 Unknown [id number] 2.16.8 40.1.438845.3.579.2 1976 Unknown [id number] 2.16.8 40.1.918338.3.579.2.718 1976 Unknown [id number] 2.16.8 40.1.510397.3.579.2.718 Unknown [id number] 2.16.8 40.1.647005.3.579.2.531 Social History Date Type Detail Facility Sex Assigned At [facility] Other Start: 03-04-2023 End: 11-17-2023 Tobacco smoking status Ex-smoker (finding) [facility] Sex Assigned At Female [facility] Functional Status Date Assessment Result Facility 11-17-2023 Functional Status N/A [facility] 08-17-2023 Functional Status N/A [facility] 07-02-2023 Functional Status N/A [facility] 06-01-2023 Functional Status N/A [facility] 03-04-2023 Functional Status N/A [facility] Clinical Notes 03-04-2023 to 12-01-2023 LaboratoryLaboratoryRadiologyLaboratoryLaboratoryLaboratoryRadiologyLaboratoryLa boratoryLaboratory Note Date & Type Note Facility 12-01-2023 Note Entered by Roshni Santos on December 01, 2023 08:58:07 EDT From: Roshni Santos To: [facility]/pharmacy #[id number] Sent: 12/01/2023 08:58:07 EDT Subject: Medication Management Approved with modifications: hydroCHLOROthiazide (HYDROCHLOROTHIAZIDE 25 MG TAB) TAKE 1 TABLET BY MOUTH EVERY DAY Qty: 90 tab(s) Days Supply: 90 Refills: 3 Substitutions Allowed Route To Pharmacy - [facility]/pharmacy #[id number] Signed by Roshni Santos --------- From: [employer] [facility] [id number] To: Valerio Gaston MD Sent: November 30, 2023 11:42:42 PM CDT Subject: Medication Management Due: December 01, 2023 12:10:06 AM CDT On Hold Pending Signature Dispensed Drug: hydroCHLOROthiazide (hydroCHLOROthiazide 25 mg oral tablet), TAKE 1 TABLET BY MOUTH EVERY DAY Quantity: 90 tab(s) Days Supply: 90 Refills: 1 Substitutions Allowed Notes from Pharmacy: --------- [facility] 07-02-2023 Hospital Discharge instructions Patient Education 07/02/2023 09:00:37 Abdominal Pain, Adult Abdominal Pain, Adult Pain in the abdomen (abdominal pain) can be caused by many things. Often, abdominal pain is not serious and it gets better with no treatment or by being treated at home. However, sometimes abdominal pain is serious. Your health care provider will ask questions about your medical history and do a physical exam to try to determine the cause of your abdominal pain. Follow these instructions at home: Medicines Take mypc-ycn-rdqrysz and prescription medicines only as told by your health care provider. Do not take a laxative unless told by your health care provider. General instructions Watch your condition for any changes. Drink enough fluid to keep your urine pale yellow. Keep all follow-up visits as told by your health care provider. This is important. Contact a health care provider if: Your abdominal pain changes or gets worse. You are not hungry or you lose weight without trying. You are constipated or have diarrhea for more than 2 3 days. You have pain when you urinate or have a bowel movement. Your abdominal pain wakes you up at night. Your pain gets worse with meals, after eating, or with certain foods. You are vomiting and cannot keep anything down. You have a fever. You have blood in your urine. Get help right away if: Your pain does not go away as soon as your health care provider told you to expect. You cannot stop vomiting. Your pain is only in areas of the abdomen, such as the right side or the left lower portion of the abdomen. Pain on the right side could be caused by appendicitis. You have bloody or black stools, or stools that look like tar. You have severe pain, cramping, or bloating in your abdomen. You have signs of dehydration, such as: ?Dark urine, very little urine, or no urine. ?Cracked lips. ?Dry mouth. ?Sunken eyes. ?Sleepiness. ?Weakness. You have trouble breathing or chest pain. Summary Often, abdominal pain is not serious and it gets better with no treatment or by being treated at home. However, sometimes abdominal pain is serious. Watch your condition for any changes. Take ucpi-jmw-ieynpra and prescription medicines only as told by your health care provider. Contact a health care provider if your abdominal pain changes or gets worse. Get help right away if you have severe pain, cramping, or bloating in your abdomen. This information is not intended to replace advice given to you by your health care provider. Make sure you discuss any questions you have with your health care provider. Document Revised: 03/15/2020 Document Reviewed: 06/05/2019 [employer] Patient Education 2022 [employer]. Follow Up Care 06/01/2023 11:27:55 With:Chen LESLIE, CHARLIE Rainey, [facility] Address: [address] [place] [address], [address] [place] [address]- [phone] When:1 month [facility] 06-24-2023 Note Entered by Roshni Santos on June 24, 2023 10:33:51 EDT From: Roshni Santos To: [facility]/pharmacy #[id number] Sent: 06/24/2023 10:33:51 EDT Subject: Medication Management Submitted: Complete:hydroCHLOROthiazide (hydroCHLOROthiazide 25 mg oral tablet) Signed by Roshni Santos 06/24/2023 10:33:00 EDT Approved with modifications: hydroCHLOROthiazide (HYDROCHLOROTHIAZIDE 25 MG TAB) TAKE 1 TABLET BY MOUTH EVERY DAY Qty: 90 tab(s) Days Supply: 90 Refills: 1 Substitutions Allowed Route To Pharmacy - [facility]/pharmacy #[id number] Signed by Roshni Santos --------- From: [facility] [id number] To: Valerio Gaston MD Sent: June 23, 2023 11:41:36 PM CDT Subject: Medication Management Due: June 24, 2023 1:07:19 PM CDT On Hold Pending Signature Dispensed Drug: hydroCHLOROthiazide (hydroCHLOROthiazide 25 mg oral tablet), TAKE 1 TABLET BY MOUTH EVERY DAY Quantity: 90 tab(s) Days Supply: 90 Refills: 1 Substitutions Allowed Notes from Pharmacy: --------- [facility] 06-01-2023 Hospital Discharge instructions Patient Education 06/01/2023 10:37:48 Abdominal Pain, Adult Abdominal Pain, Adult Pain in the abdomen (abdominal pain) can be caused by many things. Often, abdominal pain is not serious and it gets better with no treatment or by being treated at home. However, sometimes abdominal pain is serious. Your health care provider will ask questions about your medical history and do a physical exam to try to determine the cause of your abdominal pain. Follow these instructions at home: Medicines Take ibqg-nln-wyzfbyd and prescription medicines only as told by your health care provider. Do not take a laxative unless told by your health care provider. General instructions Watch your condition for any changes. Drink enough fluid to keep your urine pale yellow. Keep all follow-up visits as told by your health care provider. This is important. Contact a health care provider if: Your abdominal pain changes or gets worse. You are not hungry or you lose weight without trying. You are constipated or have diarrhea for more than 2 3 days. You have pain when you urinate or have a bowel movement. Your abdominal pain wakes you up at night. Your pain gets worse with meals, after eating, or with certain foods. You are vomiting and cannot keep anything down. You have a fever. You have blood in your urine. Get help right away if: Your pain does not go away as soon as your health care provider told you to expect. You cannot stop vomiting. Your pain is only in areas of the abdomen, such as the right side or the left lower portion of the abdomen. Pain on the right side could be caused by appendicitis. You have bloody or black stools, or stools that look like tar. You have severe pain, cramping, or bloating in your abdomen. You have signs of dehydration, such as: ?Dark urine, very little urine, or no urine. ?Cracked lips. ?Dry mouth. ?Sunken eyes. ?Sleepiness. ?Weakness. You have trouble breathing or chest pain. Summary Often, abdominal pain is not serious and it gets better with no treatment or by being treated at home. However, sometimes abdominal pain is serious. Watch your condition for any changes. Take wrkr-aav-sahyicx and prescription medicines only as told by your health care provider. Contact a health care provider if your abdominal pain changes or gets worse. Get help right away if you have severe pain, cramping, or bloating in your abdomen. This information is not intended to replace advice given to you by your health care provider. Make sure you discuss any questions you have with your health care provider. Document Revised: 03/15/2020 Document Reviewed: 06/05/2019 [employer] Patient Education 2022 [employer]. Follow Up Care 05/24/2023 11:50:43 With:Chantel Christian CNP Address: When:1 month [facility] 03-04-2023 Evaluation + Plan note Future Scheduled TestsPancreatic Elastase, Fecal 03/04/23Calprotectin, Fecal 03/04/23Giardia lamblia, Direct Detection EIA 03/04/23Celiac Disease Comprehensive 03/04/23CBC w/ Auto Diff 03/04/23 [facility] Evaluation + Plan note Future Appointments Appointment Date:07/02/2023 09:00:00 AM Scheduled Provider:Chantel Christian CNP Location:[facility] Appointment Type:[facility] Follow Up Future Scheduled TestsPancreatic Elastase, Fecal 03/04/23Calprotectin, Fecal 03/04/23Giardia lamblia, Direct Detection EIA 03/04/23Celiac Disease Comprehensive 03/04/23CBC w/ Auto Diff 03/04/23CT Abdomen/Pelvis w/ Contrast 06/01/23 [facility] Evaluation + Plan note Future Appointments Appointment Date:07/02/2023 09:00:00 AM Scheduled Provider:Chantel Christian CNP Location:[facility] Appointment Type:[facility] Follow Up Future Scheduled TestsCeliac Disease Comprehensive 03/04/23CBC w/ Auto Diff 03/04/23 [facility] Evaluation + Plan note Future Appointments Appointment Date:07/02/2023 09:00:00 AM Scheduled Provider:Chantel Christian CNP Location:[facility] Appointment Type:[facility] Follow Up Diagnostic Tests PendingGiardia lamblia, Direct Detection EIA 06/28/23Calprotectin, Fecal 06/28/23Pancreatic Elastase, Fecal 06/28/23 Future Scheduled TestsCeliac Disease Comprehensive 03/04/23CBC w/ Auto Diff 03/04/23 [facility] Evaluation + Plan note Future Appointments Appointment Date:08/02/2023 01:45:00 PM Scheduled Provider:Angelina Siddiqui MD Location:[facility] Appointment Type:[facility] Follow Up Future Scheduled TestsPancreatic Elastase, Fecal 07/02/23Fecal WBC Lactoferrin 07/02/23Giardia lamblia, Direct Detection EIA 07/02/23O & P Exam, Routine 07/02/23Celiac Disease Comprehensive 03/04/23Celiac Disease Comprehensive 07/02/23Clostridium Difficile PCR 07/02/23Enteric Panel by PCR 07/02/23Potassium Level 07/02/23CBC w/ Auto Diff 03/04/23CT Abdomen w/ + w/o Contrast 07/02/23 [facility] Evaluation + Plan note Future Appointments Appointment Date:08/17/2023 09:15:00 AM Scheduled Provider:Angelina Siddiqui MD Location:[facility] Appointment Type:[facility] Follow Up Future Scheduled TestsPancreatic Elastase, Fecal 07/02/23Fecal WBC Lactoferrin 07/02/23Giardia lamblia, Direct Detection EIA 07/02/23O & P Exam, Routine 07/02/23Celiac Disease Comprehensive 03/04/23Celiac Disease Comprehensive 07/02/23Clostridium Difficile PCR 07/02/23Enteric Panel by PCR 07/02/23Potassium Level 07/02/23CBC w/ Auto Diff 03/04/23 [facility] Evaluation + Plan note Future Appointments Appointment Date:11/17/2023 12:15:00 PM Scheduled Provider:Angelina Siddiqui MD Location:[facility] Appointment Type:[facility] Follow Up Future Scheduled TestsPancreatic Elastase, Fecal 07/02/23Fecal WBC Lactoferrin 07/02/23Giardia lamblia, Direct Detection EIA 07/02/23O & P Exam, Routine 07/02/23Celiac Disease Comprehensive 03/04/23Celiac Disease Comprehensive 07/02/23Clostridium Difficile PCR 07/02/23Enteric Panel by PCR 07/02/23Potassium Level 07/02/23CBC w/ Auto Diff 03/04/23 [facility] Evaluation + Plan note Future Appointments Appointment Date:02/16/2024 12:15:00 PM Scheduled Provider:Angelina Siddiqui MD Location:[facility] Appointment Type:[facility] Follow Up Future Scheduled TestsPancreatic Elastase, Fecal 07/02/23Fecal WBC Lactoferrin 07/02/23Giardia lamblia, Direct Detection EIA 07/02/23O & P Exam, Routine 07/02/23Celiac Disease Comprehensive 03/04/23Celiac Disease Comprehensive 07/02/23Clostridium Difficile PCR 07/02/23Clostridium Difficile PCR 11/17/23Enteric Panel by PCR 07/02/23Potassium Level 07/02/23CBC w/ Auto Diff 03/04/23 [facility] Evaluation note [facility] [employer] Other History general Narrative - Reported [facility] [employer] Other Hospital course Narrative No data available for this section [facility] Hospital Discharge instructions No data available for this section [facility] Progress note No data available for this section [facility] Reason for referral (narrative) Referred by: Chantel Christian CNP [facility] Summary Purpose Family History No Family History Records FoundNo Family History Records FoundNo Family History Records FoundNo Family History Records Found No data available for this section No data available for this section No data available for this section No data available for this section No data available for this section No data available for this section No data available for this section No Family History Records FoundNo Family History Records Found No data available for this section No Family History Records Found No data available for this section No Family History Records FoundNo Family History Records Found No data available for this section No Family History Records Found Advance Directives No Advanced Directives Records FoundNo Advanced Directives Records FoundNo Advanced Directives Records FoundNo Advanced Directives Records FoundNo Advanced Directives Records FoundNo Advanced Directives Records FoundNo Advanced Directives Records FoundNo Advanced Directives Records FoundNo Advanced Directives Records FoundNo Advanced Directives Records Found Additional Source Comments INFORMATION SOURCE (unrecogn ized section and content) DATE CREATED AUTHOR 12/24/2017 [facility] DATE CREATED AUTHOR AUTHOR'S ORGANIZ ATION 02/22/2018 [facility] DATE CREATED AUTHOR AUTHOR'S ORGANIZ ATION 02/22/2018 [facility] DATE CREATED AUTHOR AUTHOR'S ORGANIZ ATION 08/14/2022 [facility] DATE CREATED AUTHOR AUTHOR'S ORGANIZ ATION 07/08/2023 [facility] DATE CREATED AUTHOR AUTHOR'S ORGANIZ ATION 08/14/2023 [facility] DATE CREATED AUTHOR AUTHOR'S ORGANIZ ATION 09/15/2023 [facility] EPIC DATE CREATED AUTHOR AUTHOR'S ORGANIZ ATION 11/20/[address] [facility] DATE CREATED AUTHOR AUTHOR'S ORGANIZ ATION 12/24/2023 [facility] Patient Care team informatio n (unrecognized section and content) Personnel Name: VALERIO GASTON MD Address: Address: [address] [place] [id number] Personnel Name: ARTEMIO MD, MAIKEL Address: Address: [address] [place] [address] Personnel Name: VALERIO GASTON MD Address: Address: [address] [place] [address] Personnel Name: VALERIO GASTON MD Address: Address: [address] [place] [address] Personnel Name: VALERIO GASTON MD Address: Address: [address] [place] [address] Personnel Name: VALERIO GASTON MD Address: Address: [address] [place] [address] Personnel Name: VALERIO GASTON MD Address: Address: [address] [place] [address] Personnel Name: VALERIO GASTON MD Address: Address: [address] [place] [address] Personnel Name: VALERIO GASTON MD Address: Address: [address] [place] [address] Personnel Name: VALERIO GASTON MD Address: Address: [address] [place] [address] FOR RECORDS PERTAINING TO PATIENTS WHO ARE OR HAVE BEEN ENROLLED IN A CHEMICAL DEPENDENCY/SUBSTANCEABUSE PROGRAM, SOME INFORMATION MAY BE OMITTED. This clinical summary was aggregated from multiple sources. Caution should be exercised in using it in the provision of clinical care. This summary normalizes information from multiple sources, and as a consequence, information in this document may materially change the coding, format and clinical context of patient data. In addition, data may be omitted in some cases. CLINICAL DECISIONS SHOULD BE BASED ON THE PRIMARY CLINICAL RECORDS. [facility] provides no warranty or guarantee of the accuracy or completeness of information in this document.
== END 2024-01-03 20:15 | disposition home or self-care (01) ==
LOC: LAB 20:14
PROVIDERS: Visit Provider Physician Assistant
DX: Z01.419 Encounter for gynecological examination (general) (routine) without abnormal findings (principal)
CPT/HCPCS: 87624; 88175